=== PATIENT | female | born 1940 | race Caucasian/White ===

== ENCOUNTER 2017-12-04 00:10 | Outpatient (CLI) | payer MEDICARE, SELFPAY ==
[2017-12-04 09:36] LABS: ALT 22 U/L (12-78); AST 15 U/L (15-37); Alkaline Phosphatase 87 U/L (46-116); Bilirubin, Direct 0.12 mg/dL (0.00-0.20); Bilirubin, Total 0.5 mg/dL (0.2-1.0); Glucose 128 mg/dL (70-100); TSH 0.98 uIU/mL (0.358-3.74); Total Protein 7.3 g/dL (6.4-8.2)
[2017-12-04 09:48] LABS: Cholesterol 197 mg/dL (50-200)
[2017-12-06 05:15] LABS: Vitamin D 25 Total 41.5 ng/ml (30-100)
[2017-12-06 05:22] LABS: Hemoglobin A1C 6.3 % (4.5-6.2)
== END 2017-12-04 00:30 ==
PROVIDERS: Nurse Practitioner; PCP Family Medicine; Visit Provider Family Medicine
DX: F20.9 Schizophrenia, unspecified (principal); Z79.899 Other long term (current) drug therapy; R73.03 Prediabetes; M85.88 Other specified disorders of bone density and structure, other site; I10 Essential (primary) hypertension; I49.1 Atrial premature depolarization
CPT/HCPCS: 36415; 80076; 82306; 82947; 82465; 83036; 84443

== ENCOUNTER → 2019-09-22 13:29 | Outpatient (BNVA) | payer MEDICARE, SELFPAY | PROVIDERS: PCP Family Medicine; Referring Provider Family Medicine; Visit Provider Physical Therapy Assistant | DX: Z12.11 Encounter for screening for malignant neoplasm of colon (principal); Z86.010 Personal history of colon polyps; Z80.0 Family history of malignant neoplasm of digestive organs; I10 Essential (primary) hypertension ==

== ENCOUNTER 2019-10-02 12:58 | Day surgery (SDC) | payer MEDICARE, SELFPAY ==
--- NOTE | 2019-10-02 07:05 | COLE_ITS ---
Date of service: 10/02/19 Time of Service: 15:47 Colonoscopy Report Date of procedure: 10/02/19 Pre-op diagnosis general: Hx of polyps and Family history of colon Cancer Post-op diagnosis procedure note: other (Polyps, mild diverticulosis) Procedure: Colonoscopy with polypectomy Surgeon: Lynnette Gonzalez Anesthesia proc note operative: other (General/ ASA 2/ Ryan Clancy CRNA) Estimated blood loss (mL): 3 Pathology: other (Rectal polyp x3, ascending polyp, transverse polyp, descending polyp) Complications: None Disposition: same day Indications: The patient is here for Colonoscopy pre-op. Her last screening was in 2017, which was remarkable for tubular adenoma and sessile serrated adenoma. She reports her mother was diagnosed with colon cancer in her 80s. She has not had any bowel habit changes. -Discussed colonoscopy bowel prep as well as the procedure. Discussed possible complications of the procedure to include bleeding, pain, perforation, missed small lesion/polyp, sore throat, aspiration and adverse reaction to the medications. Questions were answered to patient?s satisfaction. No guarantees were implied or given. Prep: Miralax/Dulcolax Procedure Start Time: 15:47 Procedure End Time: 16:21 Retraction Time: 22 minutes Findings: 6 small sessile polyps Procedure Description: After informed consent was obtained the patient was taken to the procedure room and placed in a left decubitous position. Monitors were applied and a time out was done. The patients name, date of , procedure, allergies to medications and metal in their body was reviewed. The patient was then sedated. Once sedated and comfortable a rectal exam was done. External exam was normal. Internal exam revealed a normal sphincter tone and no palpable masses. The scope was then introduced and retro-flexed. No internal hemorrhoids were identified. The scope was then advanced to the cecum without difficulty. The ileocecal valve and appendiceal orifice were identified. The prep was adequate. The scope was then slowly retracted over 22 minutes back into the rectum. Polyps were removed with cold forceps in the rectum x3, ascending polyp, transverse polyp, and descending polyp. There was mild diverticulosis of the sig moid colon. The scope was removed and the patient was woken up and taken back to Same day surgery in stable condition. The patient tolerated the procedure well and there were no immediate complicati ons. Follow up: The patient should follow up in 3-5 years unless they develop changes in bowel habits or other new gastrointestinal complaints.
--- NOTE | 2019-10-02 07:08 | W.PM.DSUDISC ---
Discharge Plan Disposition Patient Disposition: HOME Condition: Good Discharge Details Reason For Visit: colonoscopy Attending Provider: Lynnette Gonzalez Primary Care Provider: Nikolay Beverly Home Meds and New Rx's Prescriptions: Continued Shingrix (PF) 50 mcg/0.5 mL suspension for reconstitution 50 mcg IM ONCE Qty: 1 RF: 1 ascorbate calcium (vitamin C) 500 mg tablet 500 mg PO DAILY RF: 0 lisinopril-hydrochlorothiazide [Zestoretic] 20-12.5 mg tablet 1 tab PO DAILY Qty: 90 RF: 3 olanzapine 5 mg tablet 5 mg PO QHS Qty: 90 RF: 3 acetaminophen 325 MG tablet 650 mg PO PRN PRNRF: 0 aspirin [Lo-Dose Aspirin] 81 MG tablet,delayed release (DR/EC) 81 mg PO DAILY RF: 0 (DME) lancets [FreeStyle Lancets] 1 EACH misc 1 ea Miscellaneous BID RF: 0 multivitamin [Daily Multi-Vitamin] 1 EACH tablet 1 ea PO DAILY RF: 0 (DME) blood sugar diagnostic [FreeStyle Lite Strips] 1 EACH strip 1 ea Miscellaneous as directed MDD 2 Qty: 50 RF: 11 magnesium oxide 250 MG tablet 250 mg PO DAILY RF: 0 calcium carbonate-vitamin D3 1 EACH tablet 1 ea PO DAILY RF: 0 Discontinued polyethylene glycol 3350 17 gram/dose powder 238 g PO ONCE Qty: 238 RF: 0 bisacodyl [Dulcolax (bisacodyl)] 5 mg tablet,delayed release (DR/EC) 5 mg PO ONCE Qty: 4 RF: 0 Discharge Instructions Instructions: Colorectal Polyps (DC) Additional Instructions: Findings: mild diverticulosis polyps x6 Follow up: 3-5 years if her health allows Please call if you develop: fevers >101.5 Nausea or Vomiting Abdominal pain that is not transient DAY SURGERY UNIT POST ENDOSCOPY INSTRUCTIONS 1. Because there will be medication in your system for the next 24 hours, you may feel a little sleepy. Your coordination will be affected. Therefore: a. Do not drive or operate dangerous equipment for 24 hours. b. Do not drink alcohol beverages for 24 hours (not even beer). c. Plan to go home and rest for the day. 2. Generally there are no restrictions on your activity after a day or so has gone by, but you may feel a bit fatigued for a few days. 3 After you arrive home you may have a light meal and return to a normal diet as you can tolerate it without feeling sick to your stomach. 4. After surgery, you may feel pain or discomfort. This should be only transient, but if it persists please contact your doctor. 5. If there are any questions regarding the findings of your procedure, please feel free to contact your doctor. 6. If you are unable to contact your doctor with a problem, contact the hospital at [phone]. 7. Continue all your regular medications unless directed otherwise. I understand the above instructions and have no questions. Signature of Patient or Responsible Adult Escort Date/Time Name of Responsible Adult Escort Signature of Nurse Date/Time Activity:: Activity as Tolerated Diet:: high fiber Discharge Orders Discharge Orders: Discharge Order (Routine); Ordered 10/02/19 Ordered By: Lynnette Gonzalez
[2019-10-02 13:15] VITALS: BP 137/80; PULSE 96; RESP 18; TEMP 36.1; O2SAT 94
[2019-10-02] MEDS: Lactated Ringers 1,000 ML 80 ML IV (13:40)
--- NOTE | 2019-10-02 15:50 | BOWEL_PTH ---
PATIENT: Sejal Harrington LOC: [facility] U#:[id number] AGE/SX: 78/F ROOM: RE10/02/[address]: Lynnette Gonzalez MD : [id number] BED: DIS: 10/02/2019 SPEC #: [id number] RECD: 10/02/19 17:01 STATUS: GELY RE #: [id number] TED: 10/02/19 15:[address]: Lynnette Gonzalez DEPT: Surgical Specimen RECD BY: Brinda Chilel ENTERED: 10/02/19 17:02 SP TYPE: Bowel OTHR DR: Nikolay Beverly DO Tissues: 1 - BIOPSY BOWEL 2 - BIOPSY BOWEL 3 - BIOPSY BOWEL 4 - BIOPSY BOWEL Procedures: GROSS AND MICRO LEVEL 4 Comments: [id number]
[2019-10-02 17:05] VITALS: BP 128/59; PULSE 67; RESP 18; TEMP 36.3; O2SAT 98
== END 2019-10-02 17:24 | disposition home or self-care (01) ==
LOC: SUR 12:58
PROVIDERS: PCP Family Medicine; Visit Provider Surgery
PROC: 0DJD8ZZ Inspection of Lower Intestinal Tract, Via Natural or Artificial Opening Endoscopic (ICD-10-PCS; CPT 45378; principal; 2019-10-02 15:00)
DX: Z12.11 Encounter for screening for malignant neoplasm of colon (principal); Z86.010 Personal history of colon polyps; Z80.0 Family history of malignant neoplasm of digestive organs; K57.30 Diverticulosis of large intestine without perforation or abscess without bleeding; K62.1 Rectal polyp; D12.2 Benign neoplasm of ascending colon; D12.3 Benign neoplasm of transverse colon; D12.4 Benign neoplasm of descending colon; I10 Essential (primary) hypertension; E11.9 Type 2 diabetes mellitus without complications; K21.9 Gastro-esophageal reflux disease without esophagitis
CPT/HCPCS: 45380; 88305

== ENCOUNTER 2019-11-07 09:25 | Outpatient (REF) | payer MEDICARE, SELFPAY ==
[2019-11-08 08:38] LABS: ALT 19 U/L (14-59); AST 16 U/L (15-37); Albumin 4.3 g/dL (3.4-5.0); Alkaline Phosphatase 80 U/L (46-116); Anion Gap 8.5 mmol/L (3-11); BUN 13 mg/dL (7-18); Bilirubin, Total 0.6 mg/dL (0.2-1.0); CO2 27.5 mmol/L (21.0-32.0); CREATININE 1.01 mg/dL (0.55-1.02); Calcium 9.4 mg/dL (8.5-10.1); Calculated LDL 100 mg/dL (<100); Chloride 102 mmol/L (98-107); Cholesterol 194 mg/dL (<200); Estimated GFR 53.15 (mL/min/1.73m2); Glucose 133 mg/dL (74-106); HDL Cholesterol 54 mg/dL (40-60); Sodium 138 mmol/L (136-145); Triglyceride 201 mg/dL (<150)
== END 2019-11-07 09:45 ==
LOC: LBO 09:25
PROVIDERS: PCP Family Medicine; Referring Provider Family Medicine; Visit Provider Family Medicine
DX: I10 Essential (primary) hypertension (principal); E78.5 Hyperlipidemia, unspecified
CPT/HCPCS: 36415; 80053; 80061

== ENCOUNTER 2020-11-08 02:25 | Outpatient (CLI) | payer MEDICARE, SELFPAY ==
[2020-11-08 12:42] LABS: Anion Gap 8.9 mmol/L (3-11); BUN 15 mg/dL (7-18); CO2 27.1 mmol/L (21.0-32.0); CREATININE 1.2 mg/dL (0.55-1.02); Calcium 9.6 mg/dL (8.5-10.1); Chloride 103 mmol/L (98-107); Estimated GFR 43.45 (mL/min/1.73m2); Glucose 136 mg/dL (74-106); Potassium 4.2 mmol/L (3.5-5.1); Sodium 139 mmol/L (136-145)
== END 2020-11-08 02:26 | disposition home or self-care (01) ==
LOC: LBO 02:25
PROVIDERS: PCP Family Medicine; Visit Provider Family Medicine
DX: R73.01 Impaired fasting glucose (principal)
CPT/HCPCS: 36415; 80048

== ENCOUNTER 2021-10-28 18:46 | Emergency (ER) | payer MEDICARE, SELFPAY ==
[2021-10-28 18:50] VITALS: BP 142/89; PULSE 112; RESP 18; TEMP 37.2; O2SAT 97
--- NOTE | 2021-10-28 19:45 | DI.RAD_ITS ---
Exam(s) XR SHOULDER LT COMPLETE 2+V EXAM: XR SHOULDER LT COMPLETE 2+V CLINICAL HISTORY: fall onto L shoulder, r/o fx. TECHNIQUE: 2D digital imaging was performed of the left shoulder. Four images were obtained. AP, G rashey, Y-view and axillary views were obtained. COMPARISON: No exams were available for comparison FINDINGS: BONES: No acute fracture is present. No bony destructive lesion is seen. JOINTS: No dislocation present. There are [id number] degenerative changes of the acromioclavicu lar joint. SOFT TISSUE: Normal. IMPRESSION: No acute fracture or dislocation. DATA REPOSITORY: RADIATION DOSE DELIVERED:
--- NOTE | 2021-10-28 19:45 | DI.CT_ITS ---
Exam(s) CT HEAD CERVICAL SPINE WO EXAM: CT HEAD CERVICAL SPINE WO CLINICAL HISTORY: s/p fall w/ head injury,r/o intracranial injury/fx. TECHNIQUE: Imaging Protocol: Axial computed tomography images with coronal and sagittal reformatted images were created and reviewed COMPARISON: No exams were available for comparison FINDINGS: CT Head: Ventricles and Extra axial spaces: Normal in size and morphology for the patient's age. Hemorrhage: None. Cerebral parenchyma: No evidence of an acute territorial infarct. There are areas of decreased atten uation in the white matter consistent with small vessel ischemic disease. Midline shift: None. Brainstem/Cerebellum: Normal. Calvarium: Normal. Visualized Paranasal sinuses/Mastoids: Clear. Soft Tissues: There is a small scalp hematoma overlying the posterior left parietal bone. CT Cervical Spine: Bones: No acute fracture or subluxation. Moderately severe degenerative changes are present throughou t the cervical spine. Soft Tissues: There is an enlarged thyroid gland with extension into the superior mediastinum. It is heterogeneous. There is a 0.7 cm thyroid nodule. No follow-up is recommended. Lung Apices: Clear. IMPRESSION: 1. No acute intracranial process. 2. Small scalp hematoma overlying the left parietal bone. 3. No acute fracture or subluxation in the cervical spine. 4. 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 RADIATION DOSE DELIVERED: 1,133.16mGy.cm Total DLP DATA REPOSITORY: All CT scans at this facility are submitted to the National Radiology Data Registry (NRDR) Dose Index Registry (DIR) with the [employer] (ACR). RADIATION OPTIMIZATION: All CT scans at this facility use at least one of these dose optimization te chniques: automated exposure control; mA and/or kV adjustment per patient size (includes targeted exa ms where dose is matched to clinical indication); or iterative reconstruction.
--- NOTE | 2021-10-28 19:45 | DI.CT_ITS ---
Exam(s) CT CHEST/ABD/PEL WO CT THORACIC LUMBAR SPINE REC EXAM: CT CHEST/ABD/PEL WO and CT thoracic and lumbar spine recons CLINICAL HISTORY: fall down stairs, r/o rib/hip fracture TECHNIQUE: Imaging Protocol: Axial computed tomography images with coronal and sagittal reformatted images were created and reviewed COMPARISON: CT CT THORACIC LUMBAR SPINE REC from 10/28/2021 FINDINGS: The examination is limited due to patient motion artifact. CHEST: Tracheobronchial tree: Patent where visualized. Pulmonary parenchyma: No consolidation or dominant measurable mass. No architectural distortion. Mediastinum and Meghana: No dominant adenopathy or fluid collection. The esophagus is unremarkable. Thyroid gland: There is a thyroid goiter with extension into the superior mediastinum. The largest n odule measures 7 mm. Pleura: No effusion or pneumothorax. Heart: The heart is not dilated. No coronary artery calcifications are seen. No pericardial effusion. Aorta: Thoracic aorta non-dilated. Mild atherosclerosis. Lymph nodes: Within normal limits. Bones:Within normal limits for the patient's age. Soft tissues: Unremarkable. CT thoracic spine recons: Degenerative changes are seen in the thoracic spine. No acute fractures or subluxations are seen in the thoracic spine. ABDOMEN: Liver: Normal density. No measurable mass. Gallbladder and Biliary Tract: No radiodense calculus or dilation. Pancreas: Normal density, no abnormal calcifications or inflammatory process. Spleen: Normal. Adrenals: There is a 0.7 cm nodule in the left adrenal gland. No follow-up is recommended. The righ t adrenal gland is unremarkable. Kidneys: Normal size, contour and axis. No radiodense stones or obstructive uropathy. No masses seen. Abdominal Aorta: Abdominal portion non-dilated. Atherosclerosis is present. Bowel: No obstruction or bowel wall thickening. Appendix is unremarkable. There is diverticulosis in the colon, but no evidence of acute diverticulitis. Peritoneal Cavity: No ascites, collection or mesenteric inflammatory response. No free air. Lymph Nodes: Within normal limits. Bones: Within normal limits for the patient's age. Soft Tissues: There is a large hematoma in the subcutaneous fat in the left flank. The hematoma vilma ures at least 9.[address] lumbar spine recons: No acute fractures or subluxations are seen in the lumbar spine. Mild degene rative changes are present. PELVIS: Bladder: Symmetric distention, no gross wall thickening. Reproductive Organs: There is a 6.6 x 6.7 cm cyst lesion in the left adnexa. This is likely ovarian in origin. There is a calcification within the cyst posteriorly. Lymph Nodes: Within normal limits. Bones: Within normal limits for the patient's age. IMPRESSION: 1. No acute thoracic, abdominal or pelvic organ injury. 2. 6.7 cm cystic mass in the left adnexa with an associated calcification. This may represent a sigrid gn lesion such as a cystadenoma. An ultrasound may be considered for further evaluation. 3. No acute fractures or subluxations are seen in the thoracic or lumbar spine. RADIATION DOSE DELIVERED: 1121.5 mGy.cm Total DLP 1121.5 mGy.cm Total DLP DATA REPOSITORY: All CT scans at this facility are submitted to the National Radiology Data Registry (NRDR) Dose Index Registry (DIR) with the [employer] (ACR). RADIATION OPTIMIZATION: All CT scans at this facility use at least one of these dose optimization te chniques: automated exposure control; mA and/or kV adjustment per patient size (includes targeted exa ms where dose is matched to clinical indication); or iterative reconstruction.
--- NOTE | 2021-10-28 19:53 | W.ED.GENAD ---
Discharge Plan Disposition Patient Disposition: HOME Condition: Stable Discharge Details Clinical Impression: Fall, Closed head injury, Contusion of left shoulder, Contusion of back Primary Care Provider: Nikolay Beverly ED Provider: Dyllan Shi Home Meds and New Rx's Prescriptions: No Action ascorbate calcium (vitamin C) 500 mg tablet 500 mg PO DAILY lisinopril-hydrochlorothiazide [Zestoretic] 20-12.5 mg tablet 1 tab PO DAILY Qty: 90 3RF Rx Instructions: to control BP under 140/80 acetaminophen 325 MG tablet 650 mg PO PRN PRN aspirin [Lo-Dose Aspirin] 81 MG tablet,delayed release (DR/EC) 81 mg PO DAILY (DME) lancets [FreeStyle Lancets] 1 EACH misc 1 ea Miscellaneous BID Rx Instructions: TO TEST BLOOD SUGAR 2X/D multivitamin [Daily Multi-Vitamin] 1 EACH tablet 1 ea PO DAILY Rx Instructions: with 1000 iu of vit d. (DME) FreeStyle Lite Strips 1 EACH strip 1 ea Miscellaneous as directed MDD 2 Qty: 50 11RF Rx Instructions: new diabetes, check before breakfast and before supper, two days a week or as directed, E11.9. magnesium oxide 250 MG tablet 250 mg PO DAILY olanzapine 5 mg tablet 5 mg PO QHS Qty: 90 3RF calcium carbonate-vitamin D3 1 EACH tablet 1 ea PO DAILY Discharge Instructions Instructions: Contusion in Adults (ED), R.I.C.E. Treatment (ED) Additional Instructions: Your imaging per radiology is negative for any fracture or break or bleed. Please take Tylenol as needed for pain. Use ice for areas of tenderness. If you notice any worsening of your symptoms, or any new symptoms such as vomiting, diarrhea, fever, chills, shortness of breath, chest pain, numbness, weakness, or fainting , please return immediately to the emergency department for reevaluation. Please follow up with your primary care provider as soon as possible for reassessment and reevaluation. As always, it was a pleasure participating in your medical care today. Referrals: Nikolay Beverly DO [Primary Care Provider] - Discharge Data Discharge Date/Time-TO BE ENTERED AT DEPARTURE: 10/28/21 23:16 Medical Decision Making <Dea Brown DO - Last Filed: 10/30/21 15:41> 80-year-old female with a history of hypertension, bacteremia, schizophrenia, balance problems and frequent falls presents for mechanical fall down 4 steps with head injury, left shoulder and left lower back pain. Denies headache at present and no report of LOC or vomiting. No obvious evidence of head trauma. She has an abrasion to her left lateral shoulder but no obvious deformity. There is an 8 x 6 cm area of induration and tenderness to the left lower back. Does not appear consistent with an abscess but consider seroma considering that he cannot fall 1 week ago and today. Her midline lumbar spine is tender. Chest and abdomen nontender. No orthopedic deformities noted. Will refer for CT head through pelvis imaging and left shoulder x-ray. We will give a dose of Tylenol p.o. Case endorsed to Dr. Shi to follow-up on imaging and final disposition. Dr Reid Documentation Case was signed out to me pending imaging resulting. The Vrad results have returned, and per radiology no evidence of acute process. On reassessment patient looks very well. She is jovial, and shows no signs of distress whatsoever. No evidence of significant trauma on exam. She is able to ambulate well. Patient is stable for discharge. No neurologic abnormalities on exam. Discussed red flags which to return. I have extensively reviewed the treatment plan and discharge instructions with the patient and their family. I have addressed all patient concerns at this time. The patient and family was made aware of what symptoms to monitor for that would warrant a return to the emergency department. Discussed the plan with the patient and family, they demonstrate verbal understanding and agreement with our assessment and plan at this time. The documentation in this chart was dictated using [employer] dictation software. Please excuse any dictation errors. FINDINGS: Thyroid: Normal. No significant nodule or enlargement. Trachea: Normal. Lungs: Unremarkable. No consolidation. No nodule or mass. Pleural spaces: Unremarkable. No pneumothorax. No pleural effusion or thickening. Heart: No cardiomegaly. No pericardial effusion. Coronary arteries: No significant calcification. Esophagus: No esophageal mass or wall thickening. No hiatal hernia. Mediastinal space: Normal. No mass or adenopathy. Lymph nodes: No enlarged mediastinal or axillary lymph nodes. Vasculature: Unremarkable. No aortic aneurysm. Bones/joints: Unremarkable. No acute rib or vertebral fracture. Soft tissues: Unremarkable. Other findings: Visualized upper abdomen is unremarkable. IMPRESSION: No sign of acute trauma. FINDINGS: Lungs: Visualized lung bases are clear. Liver: Normal. No mass or intrahepatic biliary ductal dilatation. Gallbladder and bile ducts: Normal. No calcified stones. No ductal dilation. Pancreas: Normal. No mass or ductal dilation. Spleen: Normal. No splenomegaly. Adrenal glands: Normal. No mass. Kidneys and ureters: Normal. No hydronephrosis, calculus, cyst or mass. Stomach and bowel: Numerous diverticula are present in the descending and sigmoid colon but without signs of acute inflammation. Appendix: No evidence of appendicitis. Intraperitoneal space: Unremarkable. No free air. No significant fluid collection. Vasculature: Unremarkable. No abdominal aortic aneurysm or significant atherosclerosis. Lymph nodes: No enlarged retroperitoneal or mesenteric lymph nodes. Urinary bladder: No mass or wall thickening. Reproductive: Large 7.3 cm thin walled cyst is present in the left adnexa. There is a bienvenido of calcification within the wall. Bones/joints: Unremarkable. No acute fracture. No lytic lesion. Soft tissues: Unremarkable. IMPRESSION: 1. No acute bony or soft tissue trauma. 2. Diverticulosis of the descending and sigmoid colon without signs of acute diverticulitis. 3. Large cystic mass of the left adnexa. No significant soft tissue component. 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 Thank you for allowing us to participate in the care of your patient. Dictated and Authenticated by: Lino Garcia MD 10/28/2021 9:23 PM Eastern Time ([place] & [place] FINDINGS: Bones/joints: Degenerative changes in the spine. No acute fracture or dislocation Soft tissues: Normal. IMPRESSION: No acute findings. Thank you for allowing us to participate in the care of your patient. Dictated and Authenticated by: Fabrice Gillis MD 10/28/2021 9:26 PM Eastern Time ([place] & [place]) FINDINGS: Bones/joints: No acute fracture. Minimal anterolisthesis of L4 on L5. No significant disc protrusion. No severe spinal canal stenosis. Soft tissues: Unremarkable. IMPRESSION: No acute lumbar fracture Thank you for allowing us to participate in the care of your patient. Dictated and Authenticated by: Fabrice Gillis MD 10/28/2021 9:22 PM Eastern Time ([place]) FINDINGS: Bones/joints: No acute fracture. The alignment is grossly maintained. No significant disc protrusion. No severe spinal canal stenosis. Soft tissues: Unremarkable. A small hiatal hernia is detected. IMPRESSION: No acute thoracic fracture FINDINGS: Brain: Mild volume loss. No hemorrhage. Mild white matter disease. No mass effect. Cerebral ventricles: No ventriculomegaly. Paranasal sinuses: Visualized sinuses are unremarkable. No fluid levels. Mastoid air cells: Visualized mastoid air cells are well aerated. Bones/joints: Unremarkable. No acute fracture. Soft tissues: Mild left parietal scalp swelling IMPRESSION: No acute intracranial hemorrhage FINDINGS: Bones/joints: No acute fracture. Loss of cervical lordosis is presumably on a degenerative basis.No significant disc protrusion. No severe spinal canal stenosis. Multilevel foraminal stenosis Lungs: Lung apices are normal. Soft tissues: Multinodular goiter with superior mediastinal extension IMPRESSION: No acute findings. Thank you for allowing us to participate in the care of your patient. Dictated and Authenticated by: Fabrice Gillis MD 10/28/2021 9:19 PM Eastern Time ([place] & [place]) Medical Records Medical records reviewed: Yes I reviewed the patient's medical records. <Dyllan Shi, DO - Last Filed: 10/28/21 22:45> 80-year-old female with a history of hypertension, bacteremia, schizophrenia, balance problems and frequent falls presents for mechanical fall down 4 steps with head injury, left shoulder and left lower back pain. Denies headache at present and no report of LOC or vomiting. No obvious evidence of head trauma. She has an abrasion to her left lateral shoulder but no obvious deformity. There is an 8 x 6 cm area of induration and tenderness to the left lower back. Does not appear consistent with an abscess but consider seroma considering that he cannot fall 1 week ago and today. Her midline lumbar spine is tender. Chest and abdomen nontender. No orthopedic deformities noted. Will refer for CT head through pelvis imaging and left shoulder x-ray. We will give a dose of Tylenol p.o. Yes Case endorsed to Dr. Shi to follow-up on imaging and final disposition. Dr Reid Documentation Case was signed out to me pending imaging resulting. The Vrad results have returned, and per radiology no evidence of acute process. On reassessment patient looks very well. She is jovial, and shows no signs of distress whatsoever. No evidence of significant trauma on exam. She is able to ambulate well. Patient is stable for discharge. No neurologic abnormalities on exam. Discussed red flags which to return. I have extensively reviewed the treatment plan and discharge instructions with the patient and their family. I have addressed all patient concerns at this time. The patient and family was made aware of what symptoms to monitor for that would warrant a return to the emergency department. Discussed the plan with the patient and family, they demonstrate verbal understanding and agreement with our assessment and plan at this time. The documentation in this chart was dictated using [employer] dictation software. Please excuse any dictation errors. FINDINGS: Thyroid: Normal. No significant nodule or enlargement. Trachea: Normal. Lungs: Unremarkable. No consolidation. No nodule or mass. Pleural spaces: Unremarkable. No pneumothorax. No pleural effusion or thickening. Heart: No cardiomegaly. No pericardial effusion. Coronary arteries: No significant calcification. Esophagus: No esophageal mass or wall thickening. No hiatal hernia. Mediastinal space: Normal. No mass or adenopathy. Lymph nodes: No enlarged mediastinal or axillary lymph nodes. Vasculature: Unremarkable. No aortic aneurysm. Bones/joints: Unremarkable. No acute rib or vertebral fracture. Soft tissues: Unremarkable. Other findings: Visualized upper abdomen is unremarkable. IMPRESSION: No sign of acute trauma. FINDINGS: Lungs: Visualized lung bases are clear. Liver: Normal. No mass or intrahepatic biliary ductal dilatation. Gallbladder and bile ducts: Normal. No calcified stones. No ductal dilation. Pancreas: Normal. No mass or ductal dilation. Spleen: Normal. No splenomegaly. Adrenal glands: Normal. No mass. Kidneys and ureters: Normal. No hydronephrosis, calculus, cyst or mass. Stomach and bowel: Numerous diverticula are present in the descending and sigmoid colon but without signs of acute inflammation. Appendix: No evidence of appendicitis. Intraperitoneal space: Unremarkable. No free air. No significant fluid collection. Vasculature: Unremarkable. No abdominal aortic aneurysm or significant atherosclerosis. Lymph nodes: No enlarged retroperitoneal or mesenteric lymph nodes. Urinary bladder: No mass or wall thickening. Reproductive: Large 7.3 cm thin walled cyst is present in the left adnexa. There is a bienvenido of calcification within the wall. Bones/joints: Unremarkable. No acute fracture. No lytic lesion. Soft tissues: Unremarkable. IMPRESSION: 1. No acute bony or soft tissue trauma. 2. Diverticulosis of the descending and sigmoid colon without signs of acute diverticulitis. 3. Large cystic mass of the left adnexa. No significant soft tissue component. 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 Thank you for allowing us to participate in the care of your patient. Dictated and Authenticated by: Lino Garcia MD 10/28/2021 9:23 PM Eastern Time ([place] FINDINGS: Bones/joints: Degenerative changes in the spine. No acute fracture or dislocation Soft tissues: Normal. IMPRESSION: No acute findings. Thank you for allowing us to participate in the care of your patient. Dictated and Authenticated by: Fabrice Gillis MD 10/28/2021 9:26 PM Eastern Time ([place] & [place]) FINDINGS: Bones/joints: No acute fracture. Minimal anterolisthesis of L4 on L5. No significant disc protrusion. No severe spinal canal stenosis. Soft tissues: Unremarkable. IMPRESSION: No acute lumbar fracture Thank you for allowing us to participate in the care of your patient. Dictated and Authenticated by: Fabrice Gillis MD 10/28/2021 9:22 PM Eastern Time ([place] & [place]) FINDINGS: Bones/joints: No acute fracture. The alignment is grossly maintained. No significant disc protrusion. No severe spinal canal stenosis. Soft tissues: Unremarkable. A small hiatal hernia is detected. IMPRESSION: No acute thoracic fracture FINDINGS: Brain: Mild volume loss. No hemorrhage. Mild white matter disease. No mass effect. Cerebral ventricles: No ventriculomegaly. Paranasal sinuses: Visualized sinuses are unremarkable. No fluid levels. Mastoid air cells: Visualized mastoid air cells are well aerated. Bones/joints: Unremarkable. No acute fracture. Soft tissues: Mild left parietal scalp swelling IMPRESSION: No acute intracranial hemorrhage FINDINGS: Bones/joints: No acute fracture. Loss of cervical lordosis is presumably on a degenerative basis.No significant disc protrusion. No severe spinal canal stenosis. Multilevel foraminal stenosis Lungs: Lung apices are normal. Soft tissues: Multinodular goiter with superior mediastinal extension IMPRESSION: No acute findings. Thank you for allowing us to participate in the care of your patient. Dictated and Authenticated by: Fabrice Gillis MD 10/28/2021 9:19 PM Eastern Time ([place] & [place]) HPI <Dea Brown DO - Last Filed: 10/30/21 15:41> General Mode of arrival: EMS. Date/Time Provider Initiated Documentation: 10/28/21 19:08. Limitations to Documentation: no limitations. Information obtained by: patient. HPI Narrative: Patient is a 80-year-old female with a history of hypertension, hyperlipidemia, falls, schizophrenia who presents for head injury, left shoulder pain and left lower back pain after mechanical fall down 4 steps prior to arrival. Patient states she was carrying a trash bag down a few steps when she slipped and fell backwards striking her head on the cement floor. She states she also hit her left shoulder and left lower back on the way down. She admits to headache initially but currently denies any headache. She is complaining mainly of mild left shoulder pain but mainly has pain in her left lower back. She also admits to a fall in the shower over a week ago with possible injury to her left lower back. Related Data Home Medications Medication Instructions Recorded Confirmed acetaminophen 325 mg tablet 650 mg PO PRN PRN 06/23/12 10/28/21 aspirin 81 mg tablet,delayed 81 mg PO DAILY 06/23/12 10/28/21 release (Lo-Dose Aspirin) lancets 28 gauge (FreeStyle 06/23/12 11/07/19 Lancets) multivitamin (Daily Multi-Vitamin 1 ea PO DAILY 05/20/15 10/28/21 tablet) blood sugar diagnostic (FreeStyle #50 strips 12/14/16 11/07/19 Lite Strips) calcium carbonate 600 mg-vitamin 1 ea PO DAILY 01/11/17 10/28/21 D3 20 mcg (800 unit) tablet magnesium oxide 250 mg PO DAILY 08/17/17 10/28/21 ascorbate calcium (vitamin C) 500 500 mg PO DAILY 09/22/19 10/28/21 mg tablet olanzapine 5 mg tablet 5 mg PO QHS #90 tabs 12/23/20 10/28/21 lisinopril 20 1 tab PO DAILY #90 tab-caps 02/11/21 10/28/21 mg-hydrochlorothiazide 12.5 mg tablet (Zestoretic) Previous Rx's Medication Instructions Recorded blood sugar diagnostic (FreeStyle #50 strips 12/14/16 Lite Strips) olanzapine 5 mg tablet 5 mg PO QHS #90 tabs 12/23/20 lisinopril 20 1 tab PO DAILY #90 tab-caps 02/11/21 mg-hydrochlorothiazide 12.5 mg tablet (Zestoretic) Allergies Allergy/AdvReac Type Severity Reaction Status Date / Time No Known Allergies Allergy Verified 10/28/21 19:19 General Stated Complaint: Trauma STUART: 3 Review of Systems <Dea Brown DO - Last Filed: 10/30/21 15:41> All systems reviewed & are unremarkable except as noted in HPI and below Constitutional Constitutional: Denies chills, Denies excessive sweating, Denies fatigue, Denies fever(s), Reports headache(s), Denies weakness and Denies weight loss Eyes Eyes: Reports system reviewed and no additional complaints, except as documented and Denies blurry vision ENT Ears, Nose, Mouth, and Throat: Denies vertigo, Denies dizziness, Denies otalgia, Reports headache(s), Denies nasal congestion, Denies sore throat and Denies throat swelling Cardiovascular Cardiovascular: Denies chest pain, Denies syncope, Denies rapid heart rate and Denies dyspnea Respiratory Respiratory: Denies chest congestion, Denies cough, Denies pain on inspiration and Denies dyspnea Gastrointestinal Gastrointestinal: Denies abdominal pain, Denies diarrhea and Denies vomiting Genitourinary Genitourinary: Denies hematuria, Denies dysuria and Denies flank pain Musculoskeletal Musculoskeletal: Denies back pain and Denies joint swelling Comments: Left shoulder, left lower back pain Integumentary/Breasts Skin/Breast: Denies lesions and Denies rash Neurologic Neurologic: Denies behavioral changes, Denies confusion, Denies vertigo, Denies dizziness, Denies syncope, Reports headache(s), Denies localized weakness and Denies weakness Psychiatric Psychiatric: Denies behavioral changes, Denies confusion and Denies depression Endocrine Endocrine: Denies excessive sweating and Denies fatigue Hematologic/Lymphatic Hematologic/Lymphatic: Denies easy bruising and Denies lymphadenopathy Allergic/Immunologic Allergic/Immunologic: Denies throat swelling PFSH <Dea Brown DO - Last Filed: 10/30/21 15:41> All Active Problems (Updated 10/28/21 @ 20:23 by Dea Brown DO) Fall (Acute) Closed head injury (Acute) Contusion of left shoulder (Acute) Contusion of back (Acute) Chronic kidney disease (Chronic) Nocturnal leg cramps (Acute) Diabetes mellitus (Chronic) Tubular adenoma of colon (Acute) Sessile colonic polyp (Acute) Counseling on health promotion and disease prevention (Acute) Hypercalcemia (Acute 06/22/10) Impaired fasting glucose (Acute 08/21/13) Overweight (Acute 02/27/11) Sessile colonic polyp (Acute 03/09/16) Tubular adenoma (Chronic 03/09/16) two adenomas, one serrated; rec repeat in 3 yrs.; Dr Gonzalez Skin lesion (Chronic 05/20/15) skin lesion R shoulder (?vaccinatioin site?) Sessile colonic polyp (Chronic 03/09/16) Osteoarthrosis involving more than one site but not generalized (Chronic 02/27/11) knees, fingers, toes Osteoarthritis (Chronic 02/27/11) knees, fingers, toes New onset type 2 diabetes mellitus (Chronic 06/26/16) ? 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 Dysmetabolic syndrome X (Chronic 02/27/11) IMPAIRED FBS 2 ELEVATED FBS OF 11/2008 MIN ELEVATION DIET CONTROLLED Depressive disorder (Chronic 02/27/11) SEES [employer]; olanzapine since 1997 Dysmetabolic syndrome X (Chronic 02/27/11) IMPAIRED FBS 2 ELEVATED FBS OF 11/2008 MIN ELEVATION DIET CONTROLLED Benign essential hypertension (Chronic 12/23/04) GOAL 130/85 Advance directive discussed with patient (Chronic 10/04/12) HAS DPOA 05/21/12 IN [facility]; [facility]; DNR/DNI ALSO DISCUSSED/DESIRED Abnormal blood sugar (Chronic) IMPAIRED FBS 2 ELEVATED FBS OF 11/2008 MIN ELEVATION DIET CONTROLLED Medical History (Updated 10/28/21 @ 20:23 by Dea Brown DO) Balance problems Basal cell carcinoma (05/31/15) nodular type R shoulder Cataract of both eyes (01/04/17) Frequent falls HTN (hypertension) Hyperlipidemia (02/27/11) Schizophrenia (05/25/16) Followed by [facility] Surgical History Colonoscopy - IV Sedation (03/09/16) Extraction of cataract (01/18/17) Dr. Lowry Left eye 01/18/17, Right eye 02/01/17 [facility] Tonsillectomy and adenoidectomy (~1950) Trigger Finger release Wide local excision of basal cell carcinoma of the right posterior upper ex (06/17/15) LynnetteJessicaAna Gonzalez Family History Mother , heart at age 94. Heart disease Father , ?? Substance abuse Sister No problems noted. Social History (Updated 11/12/20 @ 08:45 by Evy Lemus RN, RN) Smoking/Tobacco Use Status: Never Smoking risk assessment performed?: Yes Alcohol Intake: never Drug use: Never Substance use type: does not use Household members: children Housing: house Number of Children: 2 Communication Needs: None current occupation: retired Pets and animals: No Sexually active: No Do you think of yourself as: straight/heterosexual Current gender identity: female What is your relationship status?: How often do you talk on the phone with friends or family?: three or more times per week How often do you attend jewish or buddhism services?: decline to answer Do you belong to any clubs or organized social groups?: no Panel score (0-1 are the most socially isolated patients): 1 What type of physical activity do you participate in: walking Duration: 30-45 minutes/day Frequency: 3-4 times per week Simona/Alevism: None Special simona needs: No Seatbelt use: always Helmet use: Yes Helmet use: never Drive intox or ride w/intox home delivery driver: No Working smoke detector in home: Yes Fire extinguisher in home: Yes Carbon monox detector in home: Yes Do you feel safe at home: Yes Additional Social history: Pt lives with adult daughter Exam <Dea Brown DO - Last Filed: 10/30/21 15:41> Const General: cooperative and healthy appearing Orientation: alert, awake and oriented x3 HENKS Head: normal to inspection, no palpable skull fracture, normocephalic and atraumatic Ears: hearing grossly normal bilaterally, external ears normal, TM normal on the right and TM abnormal obstructed by cerumen on the left General nose exam: external nose normal Face and sinus: normal facial exam Mouth: oral mucosae normal Teeth and gingiva: poor dentition Throat: posterior oropharynx normal Eyes General: appearance normal, both eyes and all related structures Eyelids: eyelids normal Pupils: PERRL EOM: EOM intact bilaterally Neck Neck: normal visual inspection Lymphatic: no lymphadenopathy noted Chest Chest: normal inspection of the chest, normal palpation of entire chest wall and no tenderness Resp Effort & Inspection: normal respiratory effort and able to speak in complete sentences Auscultation: clear to auscultation bilaterally Cardio Rate: regular rate Rhythm: regular rhythm GI Inspection: normal to inspection Palpation: soft, not firm, no guarding, no hepatosplenomegaly, no masses and nontender Auscultation: normal bowel sounds Back/Spine/Pelvis Cervical Spine: No cervical spinal tenderness Thoracic/Lumbar Spine: thoracic and lumbar spine normal to inspection, No thoracic spinal tenderness and lumbar spinal tenderness Back/spine/pelvis image: 1. Approximate 8 x 6 cm area of tender induration with abrasion on superior aspect. There is no crepitus, erythema or significant ecchymosis. Skin General skin exam: no rashes or lesions noted Neuro General: patient alert, patient awake, patient oriented x3, moves all extremities and no meningeal signs Cranial Nerves: CN's II-XI intact bilaterally Cognition: normal cognition Speech: speech normal Gait: normal gait Motor: muscle tone normal throughout Sensory Exam: no sensory deficits noted Extrem General: normal to inspection, full ROM and capillary refill normal Shoulder/upper arm images: 1. Superficial abrasion. Tenderness to palpation but no significant pain with range of motion. No deformity. Other: Pain in left lower back and left lateral hip with range of motion of left lower extremity. No pain with range of motion in the right upper or lower extremity. Left elbow and wrist normal inspection without pain. Remainder of left lower extremity without pain with range of motion. Psych Appearance: grossly normal Mental Status: mental status grossly normal Speech and Movement: speech and movement normal Affect: normal affect Thought Process: normal Course <Dea Brown, DO - Last Filed: 10/30/21 15:41> Vital Signs Vital signs: Vital Signs Temperature 99.0 F 10/28/21 18:50 Pulse 112 H 10/28/21 18:50 Respiratory Rate 18 10/28/21 18:50 Blood Pressure 142/89 H 10/28/21 18:50 Pulse Oximetry 97 10/28/21 18:50 Temperature 99.0 F 10/28/21 18:50 Temperature Source Skin 10/28/21 18:50 Pulse 112 H 10/28/21 18:50 Respiratory Rate 18 10/28/21 18:50 Respiratory Effort Non-Labored 10/28/21 19:19 Blood Pressure 142/89 H 10/28/21 18:50 Pulse Oximetry 97 10/28/21 18:50 Pain Level 0 10/28/21 18:50 Sign Out <Dea Brown DO - Last Filed: 10/30/21 15:41> Sign Out Data: Sign Out Comment: Fall down 4 steps. Follow up on imaging and final disposition. Last updated by Dea Brown DO at 10/28/21 20:14
[2021-10-28] MEDS: Acetaminophen 500 MG TAB 1000 MG PO (20:46)
--- NOTE | 2021-10-28 21:19 | DI.VRAD_ITS ---
PROCEDURE INFORMATION: Exam: CT Head Without Contrast Exam date and time: 10/28/2021 8:55 PM Age: 80 years old Clinical indication: Other: S/P fall w/ head injury, R/O intracranial injury/fx TECHNIQUE: Imaging protocol: Computed tomography of the head without contrast. Radiation optimization: All CT scans at this facility use at least one of these dose optimization techniques: automated exposure control; mA and/or kV adjustment per patient size (includes targeted exams where dose is matched to clinical indication); or iterative reconstruction. COMPARISON: No relevant prior studies available. FINDINGS: Brain: Mild volume loss. No hemorrhage. Mild white matter disease. No mass effect. Cerebral ventricles: No ventriculomegaly. Paranasal sinuses: Visualized sinuses are unremarkable. No fluid levels. Mastoid air cells: Visualized mastoid air cells are well aerated. Bones/joints: Unremarkable. No acute fracture. Soft tissues: Mild left parietal scalp swelling IMPRESSION: No acute intracranial hemorrhage PROCEDURE INFORMATION: Exam: CT Cervical Spine Without Contrast Exam date and time: 10/28/2021 8:55 PM Age: 80 years old Clinical indication: Other: S/P fall w/ head injury, R/O intracranial injury/fx TECHNIQUE: Imaging protocol: Computed tomography of the cervical spine without contrast. Radiation optimization: All CT scans at this facility use at least one of these dose optimization techniques: automated exposure control; mA and/or kV adjustment per patient size (includes targeted exams where dose is matched to clinical indication); or iterative reconstruction. COMPARISON: No relevant prior studies available. FINDINGS: Bones/joints: No acute fracture. Loss of cervical lordosis is presumably on a degenerative basis.No significant disc protrusion. No severe spinal canal stenosis. Multilevel foraminal stenosis Lungs: Lung apices are normal. Soft tissues: Multinodular goiter with superior mediastinal extension IMPRESSION: No acute findings. Dictated and Authenticated by: Fabrice Gillis MD. Ordering:IVONNE Malin MD
--- NOTE | 2021-10-28 21:23 | DI.VRAD_ITS ---
PROCEDURE INFORMATION: Exam: CT Thoracic Spine Without Contrast Exam date and time: 10/28/2021 9:01 PM Age: 80 years old Clinical indication: Other: S/P fall down stairs, R/O FX lumbar spine TECHNIQUE: Imaging protocol: Computed tomography of the thoracic spine without contrast. Radiation optimization: All CT scans at this facility use at least one of these dose optimization techniques: automated exposure control; mA and/or kV adjustment per patient size (includes targeted exams where dose is matched to clinical indication); or iterative reconstruction. COMPARISON: CT HEAD CERVICAL SPINE WO 10/28/2021 8:55 PM FINDINGS: Bones/joints: No acute fracture. The alignment is grossly maintained. No significant disc protrusion. No severe spinal canal stenosis. Soft tissues: Unremarkable. A small hiatal hernia is detected. IMPRESSION: No acute thoracic fracture PROCEDURE INFORMATION: Exam: CT Lumbar Spine Without Contrast Exam date and time: 10/28/2021 9:01 PM Age: 80 years old Clinical indication: Other: S/P fall down stairs, R/O FX lumbar spine TECHNIQUE: Imaging protocol: Computed tomography of the lumbar spine without contrast. Radiation optimization: All CT scans at this facility use at least one of these dose optimization techniques: automated exposure control; mA and/or kV adjustment per patient size (includes targeted exams where dose is matched to clinical indication); or iterative reconstruction. COMPARISON: No relevant prior studies available. FINDINGS: Bones/joints: No acute fracture. Minimal anterolisthesis of L4 on L5. No significant disc protrusion. No severe spinal canal stenosis. Soft tissues: Unremarkable. IMPRESSION: No acute lumbar fracture Dictated and Authenticated by: Fabrice Gillis MD. Ordering:IVONNE Malin MD
--- NOTE | 2021-10-28 21:23 | DI.VRAD_ITS ---
PROCEDURE INFORMATION: Exam: CT Chest Without Contrast; Diagnostic Exam date and time: 10/28/2021 9:01 PM Age: 80 years old Clinical indication: Other: Fall down stairs, R/O rib/hip fracture TECHNIQUE: Imaging protocol: Diagnostic computed tomography of the chest without contrast. Radiation optimization: All CT scans at this facility use at least one of these dose optimization techniques: automated exposure control; mA and/or kV adjustment per patient size (includes targeted exams where dose is matched to clinical indication); or iterative reconstruction. COMPARISON: CT HEAD CERVICAL SPINE WO 07/31/2021 20:55 FINDINGS: Thyroid: Normal. No significant nodule or enlargement. Trachea: Normal. Lungs: Unremarkable. No consolidation. No nodule or mass. Pleural spaces: Unremarkable. No pneumothorax. No pleural effusion or thickening. Heart: No cardiomegaly. No pericardial effusion. Coronary arteries: No significant calcification. Esophagus: No esophageal mass or wall thickening. No hiatal hernia. Mediastinal space: Normal. No mass or adenopathy. Lymph nodes: No enlarged mediastinal or axillary lymph nodes. Vasculature: Unremarkable. No aortic aneurysm. Bones/joints: Unremarkable. No acute rib or vertebral fracture. Soft tissues: Unremarkable. Other findings: Visualized upper abdomen is unremarkable. IMPRESSION: No sign of acute trauma. PROCEDURE INFORMATION: Exam: CT Abdomen And Pelvis Without Contrast Exam date and time: 10/28/2021 9:01 PM Age: 80 years old Clinical indication: Other: Fall down stairs, R/O rib/hip fracture TECHNIQUE: Imaging protocol: Computed tomography of the abdomen and pelvis without contrast. Radiation optimization: All CT scans at this facility use at least one of these dose optimization techniques: automated exposure control; mA and/or kV adjustment per patient size (includes targeted exams where dose is matched to clinical indication); or iterative reconstruction. COMPARISON: No relevant prior studies available. FINDINGS: Lungs: Visualized lung bases are clear. Liver: Normal. No mass or intrahepatic biliary ductal dilatation. Gallbladder and bile ducts: Normal. No calcified stones. No ductal dilation. Pancreas: Normal. No mass or ductal dilation. Spleen: Normal. No splenomegaly. Adrenal glands: Normal. No mass. Kidneys and ureters: Normal. No hydronephrosis, calculus, cyst or mass. Stomach and bowel: Numerous diverticula are present in the descending and sigmoid colon but without signs of acute inflammation. Appendix: No evidence of appendicitis. Intraperitoneal space: Unremarkable. No free air. No significant fluid collection. Vasculature: Unremarkable. No abdominal aortic aneurysm or significant atherosclerosis. Lymph nodes: No enlarged retroperitoneal or mesenteric lymph nodes. Urinary bladder: No mass or wall thickening. Reproductive: Large 7.3 cm thin walled cyst is present in the left adnexa. There is a bienvenido of calcification within the wall. Bones/joints: Unremarkable. No acute fracture. No lytic lesion. Soft tissues: Unremarkable. IMPRESSION: 1. No acute bony or soft tissue trauma. 2. Diverticulosis of the descending and sigmoid colon without signs of acute diverticulitis. 3. Large cystic mass of the left adnexa. No significant soft tissue component. 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 Dictated and Authenticated by: Lino Garcia MD. Ordering:IVONNE Malin MD
--- NOTE | 2021-10-28 21:26 | DI.VRAD_ITS ---
PROCEDURE INFORMATION: Exam: XR Left Shoulder Exam date and time: 10/28/2021 9:08 PM Age: 80 years old Clinical indication: Other: Fall onto L shoulder, R/O FX TECHNIQUE: Imaging protocol: Radiologic exam of the Left shoulder. Views: 2 or more views. COMPARISON: CT CHEST/ABD/PEL WO 10/28/2021 9:01 PM FINDINGS: Bones/joints: Degenerative changes in the spine. No acute fracture or dislocation Soft tissues: Normal. IMPRESSION: No acute findings. Dictated and Authenticated by: Fabrice Gillis MD. Ordering:IVONNE Malin MD
[2021-10-28 22:41] VITALS: BP 107/63; PULSE 90; RESP 16; TEMP 36.6; O2SAT 95
== END 2021-10-28 23:16 | disposition home or self-care (01) ==
PROVIDERS: Emergency Provider Student in an Organized Health Care Education/Training Program; PCP Family Medicine
DX: S40.012A Contusion of left shoulder, initial encounter (principal); S30.0XXA Contusion of lower back and pelvis, initial encounter; W10.9XXA Fall (on) (from) unspecified stairs and steps, initial encounter; I10 Essential (primary) hypertension; S09.90XA Unspecified injury of head, initial encounter
CPT/HCPCS: 71250; 99284; 70450; 72125; 73030; 74176

== ENCOUNTER 2022-01-16 01:44 | Outpatient (CLI) | payer MEDICARE, SELFPAY ==
--- OUTSIDE RECORDS SUMMARY | 2022-01-16 01:46 | XMS_ITS | Encounter Summary ---
:1940 Author Organization [facility] Address [address] [place] [address] Care Team Providers Name Role Phone Nikolay Beverly DO Primary Care Provider Encounter Details Date Type Department Care Team Description 10/03/2019 Lab Requisition [facility] Sita Gonzalez for other Pathology & MD Taran general examination Laboratory Medicine [address], [place] [address] [facility] [address] [place], [place] [id number] Social History Tobacco Use Types Packs/Day Years Used Date Smoking Tobacco: Never Assessed Sex Assigned at Date Recorded Not on file documented as of this encounter Plan of Treatment Not on filedocumented as of this encounter Procedures Procedure Name Priority Date/Time Associated Diagnosis Comme nts SURGICAL PATHOLOGY Today 10/02/2019 15:50 Encounter for othe r Results for this EDT general examination procedur e are in the results section. documented in this encounter Results SURGICAL PATHOLOGY (10/02/2019 15:50 EDT) Component Value Ref Test Analysis Performed At [facility] Range Method Time Signature Final A. RECTUM, POLYP X3, BIOPSY: 10/04/2019 [facility] Diagnosis - Hyperplastic polyps. 12:00 EDT CENTER LABORATORY B. COLON, ASCENDING, POLYP, BIOPSY: SERVICES - Tubular adenoma. C. COLON, TRANSVERSE, POLYP, BIOPSY: - Tubular adenoma. - Consistent with sessile serrated adenoma. D. COLON, DESCENDING, POLYP, BIOPSY: - Tubular adenoma. Attestation By the signature 10/04/2019 [facility] Electronically below, the 12:00 EDT CENTER signed by Jose Guadalupe attending LABORATORY Cora Chavarria MD physician SERVICES on 10/04/19 20 at certifies that 1200 they have 1) personally conducted a gross and/or microscopic examination of the described specimen(s), and/or personally interpreted the results of laboratory testing of the described specimen(s), and 2) personally rendered or confirmed the above diagnosis. Clinical Screening, 10/04/2019 [facility] History history of 12:00 EDT CENTER polyps, family LABORATORY history of colon SERVICES cancer Gross A. 10/04/2019 [facility] Description Received in formalin yaron d with proper patient identification (initials C, C) and rectal polyps x3 are two urbina brown tissues, 0.2 x 0.2 x 0.2 cm and 0.3 x 0.2 x 0.1 cm. Entirely submitted in A1. 12:00 T CENTER NOTE TO PATHOLOGIST: For par t A, the requisition lists the specimen as 3, however only 2 pieces of tissue are identified in the specimen container, per the cutting room. LABORATORY SERVICES B. Received in formalin yaron d with proper patient identification (initials C, C) and ascending colon polyp is a urbina irregular tissue, 0.2 x 0.1 x 0.1 cm. Entirely submitted in B1. C. Received in formalin yaron d with proper patient identification (initials C, C) and transverse colon polyp are two urbina irregular tissues, 0.1 cm in greatest dimension and 0.2 x 0.2 x 0.1 cm. Entirely submitted in C1. D. Received in formalin yaron d with proper patient identification (initials C, C) and descending colon polyp are two urbina irregular tissues, 0.2 x 0.2 x 0.1 cm and 0.2 x 0.1 x 0.1 cm. Entirely submitted in D1. Jessica Machado 10/03/2019 13:28 Performing Lab [facility] 10/04/2019 [facility] LAB 12:00 [facility] LABORATORY SERVICES Scanned Images 10/04/2019 [facility] 12:00 [facility] SERVICES Specimen Anatomical Collection Method Collection Time Receive d Time (Source) Location / / Volume Laterality Tissue SPECIMEN FROM 10/02/2019 15:50 10/03/2019 6:56 RECTUM / Unknown EDT EDT Tissue specimen 10/02/2019 15:50 10/03/19 6:56 (specimen) EDT EDT (Colon, Polyp) Tissue specimen 10/02/2019 15:50 10/03/19 20 6:56 (specimen) EDT EDT (Colon, Polyp) Tissue specimen 10/02/2019 15:50 10/03/19 20 6:56 (specimen) EDT EDT (Colon, Polyp) Taran Gonzalez MD PATHOLOGY ORDERABLES Performing Organization Address City/State/ZIP Code Phon e Number [facility] [address] [place] [address] SERVICES documented in this encounter Visit Diagnoses Diagnosis Encounter for other general examination documented in this encounter Care Teams Scientific Illustrator Relationship Specialty Start Date End Date Nikolay Beverly DO PCP - General 09/29/[address] [place] [phone] documented as of this encounter
--- OUTSIDE RECORDS SUMMARY | 2022-01-16 01:46 | XMS_ITS | Encounter Summary ---
:1940 Author Organization [facility] Address [address] [place] [address] Care Team Providers Name Role Phone Evgeny King MD Primary Care Provider Encounter Details Date Type Department Care Team Description 05/31/2015 Results Only [facility]- Chente [place] [phone] [facility] [place], [place] [id number] (Wo rk) Social History Tobacco Use Types Packs/Day Years Used Date Smoking Tobacco: Never Assessed Sex Assigned at Date Recorded Not on file documented as of this encounter Plan of Treatment Not on filedocumented as of this encounter Procedures Procedure Name Priority Date/Time Associated Diagnosis Comme [facility] SURGICAL PATHOLOGY Routine 05/31/2015 10:30 Resul ts for this EDT procedure are i n the results section. documented in this encounter Results SURGICAL PATHOLOGY (05/31/2015 10:30 EDT) Component Value Ref Test Analysis Performed At [facility] Method Time Signature Pathology SURGICAL PATHOLOGY REPORT [facility] Report: Reports generated via electronic interface contain [facility] data; CENTER however they are lacking the format of the original report. LABORATORY Caution should be taken when reading/interpreting unformat mago reports. SERVICES Name: ? NANDA COLLIER ? Accession #: ? [id number] ? : ? 1940 (Age: [age]) ??F ? Collect Date: ? 05/31/2015 ? Location: ? [facility] ? Receive Date: ? 06/01/2015 ? Provider: CHENTE SANDOVAL Copy to: BLAYNE MARTINEZ MD ? Final Pathologic Diagnosis: SKIN OF SHOULDER, RIGHT, PUNCH BIOPSY: - Basal cell carcinoma, nodular type. - Lesion extends to peripheral edge and base of biopsy spec imen. Document reviewed and electronically signed by: BECKY REED MD Report ??Date: 06/04/2015 12:57 By the signature above, the attending physician certifies th at he/she has personally conducted a gross and/or microscopic examin ation of the described specimens and rendered or confirmed the above diagnosis. Specimen(s) Received: Skin lesion right shoulder Clinical History: Skin lesion right shoulder Gross Description: ? Received in formalin labelled with proper patient identification (initials C, C) and skin lesion of ri t shoulder is a punch-shaped biopsy of urbina-white skin (0.2 cm in diameter and 0.2 cm in thickness). Also received is a urbina-brown soft tissue fragment (0.4 x 0.2 x 0.1 cm). Both tissues are submitted intact in 1. Dr. Toth 06/03/2015 2:12 PM End of Report Specimen Anatomical Collection Method Collection Time Receive d Time (Source) Location / / Volume Laterality 05/31/2015 10:30 06/01/2015 EDT 10:30 EDT Chente SANDOVAL PATHOLOGY ORDERABLES Performing Organization Address City/State/ZIP Code Phon e Number [facility] [address] [place] [address] SERVICES documented in this encounter Visit Diagnoses Not on filedocumented in this encounter Care Teams Hardboard Supervisor Relationship Specialty Start Date End Date Evgeny King MD PCP - General 04/16/09 06/05/[address] [place] [phone] documented as of this encounter
--- OUTSIDE RECORDS SUMMARY | 2022-01-16 01:46 | XMS_ITS | Encounter Summary ---
:1940 Author Organization [facility] Address [address] [place] [address] Care Team Providers Name Role Phone Nikolay Michele MD Primary Care Provider Unavailable Encounter Details Date Type Department Care Team Description 06/17/2015 Hospital Encounter [facility]- Hillary Callejas, Provider, [facility] [address] [facility] [phone] [place] [address] (Work) [phone] Social History Tobacco Use Types Packs/Day Years Used Date Smoking Tobacco: Never Assessed Sex Assigned at Date Recorded Not on file documented as of this encounter Discharge Disposition Disposition Code Departure Means Destination Home or Self [facility] documented in this encounter Plan of Treatment Not on filedocumented as of this encounter Visit Diagnoses Not on filedocumented in this encounter Care Teams C Python Developer Relationship Specialty Start Date End Date Nikolay Michele MD PCP - General 06/06/15 documented as of this encounter
--- OUTSIDE RECORDS SUMMARY | 2022-01-16 01:46 | XMS_ITS | Encounter Summary ---
:1940 Author Organization [facility] Address [address] [place] [address] Care Team Providers Name Role Phone Evgeny King MD Primary Care Provider Encounter Details Date Type Department Care Team Description 04/16/2009 Results Only [facility] Ruth Bui, TONO Laboratory Services - [address] [place], [place] [address] [facility] [id number] [place] [address] [phone] Social History Tobacco Use Types Packs/Day Years Used Date Smoking Tobacco: Never Assessed Sex Assigned at Date Recorded Not on file documented as of this encounter Plan of Treatment Not on filedocumented as of this encounter Procedures Procedure Name Priority Date/Time Associated Comments Diagnosis HPV DETECTION, HIGH Routine 04/16/2009 13:55 Resu lts for this RISK TYPES EST procedure are i n the results section. CYTOPATHOLOGY Routine 04/16/2009 0:00 Results for this EST procedure are i n the results section. documented in this encounter Results HUMAN PAPILLOMA VIRUS DNA TEST (04/16/2009 13:55 EST) [facility] Method Time Signature Specimen Cervix, CANTOR Description ThinPrep [facility] vial Result Negative for CANTOR HPV types [facility] 16, 18, 31, 33, 35, 39, 45, 51, 52, 56, 58, 59, and 68. Report Status Final SAKSHI 04/23/2009 [facility] Specimen Anatomical Collection Method Collection Time Receive d Time (Source) Location / / Volume Laterality 04/16/2009 13:55 04/18/2009 EST 13:55 EST Agnes Bui NP MICROBIOLOGY - GENERAL ORDER ANTHONY Performing Organization Address City/State/ZIP Code Phon e Number [facility] [address] [place] [address] SERVICES [facility] [address] [place] [address] CYTOPATHOLOGY (04/16/2009 0:00 EST) Component Value Ref Test Analysis Performed At [facility] Range Method Time Signature Pathology CYTOPATHOLOGY REPORT ? [facility] Report: ? [facility] Reports generated via LensAR interface contain original data; ? however they are lacking the format of the original report. ? Caution should be taken when reading/interpreting unformatted reports. ? Name: ? NANDA COLLIER ? Accession #: ? [id number] ? : ? 1940 (Age: 68) ??F ?Collect Date: ? 04/16/2009 ? Location: ? [facility] ? Receive Date: ? 04/16/2009 ? Provider: ?AGNES L R OBINSON SOLVENT MIXER ? Copy to: ? Specimen/Source: ? Pap Test, Endocervix, ThinPrep Imaging System with ? manual evaluation ? Last Menstrual Period: ? > 20 yrs ? Other: ? HPVDX - HPV testing requeste d regardless of diagnosis on current ThinPrep Pap ?? test. ? SPECIMEN ADEQUACY ? Satisfactory for Eval uation ? - assessment of transformati on zone component not applicable ( e.g. atrophy, ? vaginal sample, hysterectomy ) ? GENERAL CATEGORIZATION ? Negative for Intraepi thelial Lesion or Malignancy ? Document reviewed and electr onically signed by: ? Angelica Verville,CT(ASCP) ? Report Date: ??04/18/ 2009 07:43 ? End of Report ? Specimen (Source) Anatomical Location Collection Method / Collectio n Time Received Time / Laterality Volume 04/16/2009 04/16/2009 Agnes Bui SOLVENT MIXER PATHOLOGY ORDERABLES Performing Organization Address City/State/ZIP Code Phon e Number [facility] [address] [place] [address] SERVICES [facility] [address] [place] [address] documented in this encounter Visit Diagnoses Not on filedocumented in this encounter Care Teams Daylight Driller Relationship Specialty Start Date End Date Ajamie, Evgeny, MD PCP - General 04/16/09 06/05/15 [address] [place] [phone] documented as of this encounter
--- OUTSIDE RECORDS SUMMARY | 2022-01-16 01:46 | XMS_ITS | Encounter Summary ---
:1940 Author Organization [facility] Address [address] [place] [address] Care Team Providers Name Role Phone Nikolay Michele MD Primary Care Provider Unavailable Encounter Details Date Type Department Care Team Description 06/13/2015 Hospital Encounter [facility]- Hillary Unknown, Provider, [facility] [address] [place] [address] [place] [address] (Work) [phone] Social History Tobacco Use Types Packs/Day Years Used Date Smoking Tobacco: Never Assessed Sex Assigned at Date Recorded Not on file documented as of this encounter Discharge Disposition Disposition Code Departure Means Destination Home or Self Senior Living documented in this encounter Plan of Treatment Not on filedocumented as of this encounter Procedures Procedure Name Priority Date/Time Associated Diagnosis Comme [facility] SURGICAL PATHOLOGY Routine 06/17/2015 9:51 EDT Re sults for this procedure are i n the results section. documented in this encounter Results SURGICAL PATHOLOGY (06/17/2015 9:51 EDT) Component Value Ref Test Analysis Performed At [facility] Method Time Signature Pathology SURGICAL PATHOLOGY REPORT [facility] MEDICAL Report: Reports generated via electronic interface contain origina l data; CENTER however they are lacking the format of the original report. LABORATORY Caution should be taken when reading/interpreting unformat mago reports. SERVICES Name: ? NANDA COLLIER ? Accession #: ? [id number] ? : ? 1940 (Age: [age]) ??F ? Collect Date: ? 06/17/2015 ? Location: ? [facility] ? Receive Date: ? 06/18/2015 ? Provider: TARAN CASTRO MD Copy to: NIKOLAY MICHELE MD ? Final Pathologic Diagnosis: SKIN OF SHOULDER, RIGHT, RE-EXCISION: - Residual basal cell carcinoma, nodular type. - Margins of excision negative. - Lesion measures approximately 1.8 mm to the n earest peripheral (3 o'clock) margin. - Lesion measures approximately 3.0 mm to the deep margin. - Epidermal reparative change and dermal scar. Document reviewed and electronically signed by: BECKY REED MD Report ??Date: 06/19/2015 14:12 By the signature above, the attending physician certifies at he/she has personally conducted a gross and/or microscopic examin ation of the described specimens and rendered or confirmed the above diagnosis. Specimen(s) Received: Basal cell cancer right shoulder, superior medial with sutur e Clinical History: Basal cell carcinoma Gross Description: ? Received in formalin labelled with proper patient identification (initials C, C) and right shoulder superior medial suture is an or iented elliptical excision of pink-urbina skin with a suture designating gonzalez perior medial, further designated as 12 o'clock (5.0 cm from 12 o'clock to 6 o'clock, 1.1 cm from 3 o'clock to 9 o'clock, and is excised to a depth of 2.6 cm). There is a central healing linear scar with mul tiple blue sutures on the skin surface that measures 3.8 cm in length and 0.3 cm in diameter. Upon removal of santo e sutures, the central incision reopened revealing a de pth of 1.0 cm. The 3 o'clock aspect is blue inked and the 9 o'clock aspect is black inked. e specimen is serially sectioned from 12 o'clock to 6 o'clock and is entirely submitted as follows: BLOCK PRESTON 1- ??12 o'clock tip, reverse en face 2- ??6 o'clock tip, reverse en face 3-15- ??central sections Pedro Mattsonoit 06/18/2015 10:40 AM End of Report Specimen Anatomical Collection Method Collection Time Receive d Time (Source) Location / / Volume Laterality 06/17/2015 9:51 06/18/2015 9 :51 EDT EDT Taran Castro MD PATHOLOGY ORDERABLES Performing Organization Address City/State/ZIP Code Phon e Number [facility] [address] [place] [address] SERVICES documented in this encounter Visit Diagnoses Not on filedocumented in this encounter Care Teams Blasting Entryman Relationship Specialty Start Date End Date Nikolay Michele MD PCP - General 06/06/15 documented as of this encounter
--- OUTSIDE RECORDS SUMMARY | 2022-01-16 01:46 | XMS_ITS | Encounter Summary ---
:1940 Author Organization [facility] Address [address] [place] [address] Care Team Providers Name Role Phone Evgeny King MD Primary Care Provider Encounter Details Date Type Department Care Team Description 03/24/2007 Results Only [facility] - Veronica Flannery son, Agnes L, UPHOLSTERER INSIDE conversion [address] [place] [phone] (Wo rk) Social History Tobacco Use Types Packs/Day Years Used Date Smoking Tobacco: Never Assessed Sex Assigned at Date Recorded Not on file documented as of this encounter Plan of Treatment Not on filedocumented as of this encounter Procedures Procedure Name Priority Date/Time Associated Diagnosis Comme [facility] CYTOPATHOLOGY Routine 03/24/2007 0:00 EST Results for this procedure are i n the results section . documented in this encounter Results CYTOPATHOLOGY (03/24/2007 0:00 EST) Component Value Ref Test Analysis Performed At [facility] Method Time [facility] Pathology CYTOPATHOLOGY REPORT [facility] Report: [facility] Reports generated via electronic interface contain original data; however they are lacking the format of the original report. Caution should be taken when reading/interpreting unformatte d reports. Name: ? NANDA COLLIER ? Accession #: ? [id number] : ? 1940 (Age: 66) ??F ?Collect Date: ? 03/24/2007 Location: ? [facility] ? Receive Date: ? 03/25/2007 Provider: ?AGNES RODGERS UPHOLSTERER INSIDE Copy to: ? Specimen/Source: ? ThinPrep Pap Test, Cervix, processed on [employer] ThinPrep Imaging System, with manual evaluation Last Menstrual Period: ? 1996 Other: ? HPVA - HPV testing requested if ASC-US on the current ThinPr ep Pap test. ? SPECIMEN ADEQUACY ? Satisfactory for Evaluation - assessment of transformation zone component not appl icable ( e.g. atrophy, vaginal sample, hysterectomy) GENERAL CATEGORIZATION ? Negative for Intraepithelial Lesion or Malignancy ? Document reviewed and electronically signed by: ? Sylvie Marshall, [facility](ASCP) ? Report Date: ??03/30/2007 14:41 End of Report Specimen (Source) Anatomical Location Collection Method / Collectio n Time Received Time / Laterality Volume 03/24/2007 03/25/2007 Agnes Rodgers NP PATHOLOGY ORDERABLES Performing Organization Address City/State/ZIP Code Phon e Number [facility] [address] [place] [address] SERVICES [facility] [address] [place] [address] documented in this encounter Visit Diagnoses Not on filedocumented in this encounter Care Teams Box Toe Stitcher Relationship Specialty Start Date End Date Evgeny King MD PCP - General 04/16/09 06/05/[address] [place] [phone] documented as of this encounter
--- OUTSIDE RECORDS SUMMARY | 2022-01-16 01:46 | XMS_ITS | Encounter Summary ---
:[address] [facility] Address [address] [place] [address] Care Team Providers Name Role Phone Evgeny King MD Primary Care Provider Encounter Details Date Type Department Care Team Description 03/17/2006 Results Only [facility] - Veronica Flannery son, Agnes L, SLAT BASKET TOP MAKER conversion [address] [place] [phone] (Wo rk) Social History Tobacco Use Types Packs/Day Years Used Date Smoking Tobacco: Never Assessed Sex Assigned at Date Recorded Not on file documented as of this encounter Plan of Treatment Not on filedocumented as of this encounter Procedures Procedure Name Priority Date/Time Associated Diagnosis Comme [facility] CYTOPATHOLOGY Routine 03/17/2006 0:00 EST Results for this procedure are i n the results section . documented in this encounter Results CYTOPATHOLOGY (03/17/2006 0:00 EST) Component Value Ref Test Analysis Performed At [facility] Method Time [facility] Pathology CYTOPATHOLOGY REPORT [facility] Report: [facility] Reports generated via electronic interface contain original data; however they are lacking the format of the original report. Caution should be taken when reading/interpreting unformatte d reports. Name: ? NANDA COLLIER ? Accession #: ? [id number] : ? 1940 (Age: 65) ??F ?Collect Date: ? 03/17/2006 Location: ? [facility] ? Receive Date: ? 03/18/2006 Provider: ?AGNES RODGERS SLAT BASKET TOP MAKER Copy to: ? Specimen/Source: ? ThinPrep Pap Test, Cervix, processed on [employer] ThinPrep Imaging System, with manual evaluation Last [...] and electronically signed by: ? Sylvie Marshall, [facility](ASCP) ? Report Date: ??03/19/2006 15:46 End of Report Specimen (Source) Anatomical Location Collection Method / Collectio n Time Received Time / Laterality Volume 03/17/2006 03/18/2006 Agnes Rodgers NP PATHOLOGY ORDERABLES Performing Organization Address City/State/ZIP Code Phon e Number [facility] [address] [place] [address] SERVICES [facility] [address] [place] [address] documented in this encounter Visit Diagnoses Not on filedocumented in this encounter Care Teams Account Executive Trainee Relationship Specialty Start Date End Date Evgeny King MD PCP - General 04/16/09 06/05/[address] [place] [phone] documented as of this encounter
--- OUTSIDE RECORDS SUMMARY | 2022-01-16 01:46 | XMS_ITS | Encounter Summary ---
:1940 Author Organization [facility] Address [address] [place] [address] Care Team Providers Name Role Phone Nikolay Michele MD Primary Care Provider Unavailable Encounter Details Date Type Department Care Team Description 06/13/2015 Results Only [facility]- Surinder Monge [place] [phone] [facility] [place], [place] [phone] (Wo rk) Social History Tobacco Use Types Packs/Day Years Used Date Smoking Tobacco: Never Assessed Sex Assigned at Date Recorded Not on file documented as of this encounter Plan of Treatment Not on filedocumented as of this encounter Procedures Procedure Name Priority Date/Time Associated Diagnosis Comme [facility] SURGICAL PATHOLOGY Routine 06/13/2015 21:16 Resul ts for this EDT procedure are i n the results section. documented in this encounter Results SURGICAL PATHOLOGY (06/13/2015 21:16 EDT) Component Value Ref Test Analysis Performed At [facility] Method Time Signature Pathology SURGICAL PATHOLOGY REPORT [facility] MEDICAL Report: Reports generated via electronic interface contain [facility] data; CENTER however they are lacking the format of the original report. LABORATORY Caution should be taken when reading/interpreting unformat mago reports. SERVICES Name: ? NANDA COLLIER ? Accession #: ? [id number] ? : ? 1940 (Age: 8 3) ??F ? Collect Date: ? 06/13/2015 ? Location: ? [facility] ? Receive Date: ? 06/13/2015 ? Provider: SURINDER SANDOVAL Copy to: NIKOLAY MICHELE MD ? Final Pathologic Diagnosis: SKIN OF SHOULDER, EXCISION: - Basal cell carcinoma, nodular type. ??See comment. - Deep margin POSITIVE for basal cell carcinoma. Comment: The excision consists of bas al cell carcinoma with nodular growth pattern. ??The basal cell carcinoma spans m uch of the excision specimen and is transected along the deep margin. ??It is present within 0.5 mm o f the peripheral margin. ??In addition, there are separate fragments of tumor without orie ntation. Correlation with the clinical history is recommended. ??(Dr. Zavala)/mpl Microscopic Description: Irregularly shaped islands o f atypical basal cells infiltrate the dermis. ??The basal cells have scant cytoplasm and round dark nuclei. ??Mitotic figures and apoptotic bodies are evident . ??The nuclei at the periphery of the islands have a palisaded arrangement. ??The islands are associated with a fibromyxoid stroma and there is cleft formation bet ween some of the islands and stroma. ??(Dr. Zavala)/mpl Document reviewed and electronically signed by: DELORES ZAVALA MD Report ??Date: 06/17/2015 14:57 By the signature above, the attending physician certifies th at he/she has personally conducted a gross and/or microscopic examin ation of the described specimens and rendered or confirmed the above diagnosis. Specimen(s) Received: Excision of shoulder lesion Clinical History: Excision of shoulder lesion Gross Description: ? Received in formalin labelled with proper patient identification (initials C, C) and excision of shoulder lesion is an unoriented, previously disrupted elliptical skin excision (2.8 x 1.8 cm and is excised to a depth of 0.2 cm, following reconstruction). A lso within the container is an aggregate of urbina-pink coarse, partially hemorrhagic soft tissue (1.5 x 1.2 x 0.5 c m). ? On the skin ellipse i s a central disruption (1.5 x 0.5 cm) that is rounded by urbina-hernández hypopigmented skin with a urbina-hernández l obulated, scaly papule (0.8 x 0.8 x 0.2 cm). Grossly the p apule is 0.2 cm from the nearest peripheral margin. The surgical margin is inked blue. The specimen is serially sectioned and submitted entirely as follows: BLOCK PRESTON 1- ??tips, reverse en face 2-4- ??central sections 5- ??additional soft tissue 06/14/2015 8:44 AM End of Report Specimen Anatomical Collection Method Collection Time Receive d Time (Source) Location / / Volume Laterality 06/13/2015 21:16 06/13/2015 EDT 21:16 EDT Surinder SANDOVAL PATHOLOGY ORDERABLES Performing Organization Address City/State/ZIP Code Phon e Number [facility] [address] [place] [address] SERVICES documented in this encounter Visit Diagnoses Not on filedocumented in this encounter Care Teams Dipper Clock And Watch Hands Relationship Specialty Start Date End Date Nikolay Michele MD PCP - General 06/06/15 documented as of this encounter
--- OUTSIDE RECORDS SUMMARY | 2022-01-16 01:46 | XMS_ITS | Encounter Summary ---
:1940 Author Organization [facility] Address [address] [place] [address] Care Team Providers Name Role Phone Evgeny King MD Primary Care Provider Encounter Details Date Type Department Care Team Description 08/07/2004 Results Only [facility] - Veronica Flannery son, Agnes L, ANAESTHESIOLOGIST conversion [address] [place] [phone] (Wo rk) Social History Tobacco Use Types Packs/Day Years Used Date Smoking Tobacco: Never Assessed Sex Assigned at Date Recorded Not on file documented as of this encounter Plan of Treatment Not on filedocumented as of this encounter Procedures Procedure Name Priority Date/Time Associated Diagnosis Comme [facility] CYTOPATHOLOGY Routine 08/07/2004 0:00 EDT Results for this procedure are i n the results section . documented in this encounter Results CYTOPATHOLOGY (08/07/2004 0:00 EDT) Component Value Ref Test Analysis Performed At [facility] Pathology CYTOPATHOLOGY REPORT [facility] Report: [facility] Reports generated via electronic interface contain original data; however they are lacking the format of the original report. Caution should be taken when reading/interpreting unformatte d reports. Name: ? NANDA COLLIER ? Accession #: ? [id number] : ? 1940 (Age: 63) ??F ?Collect Date: ? 08/07/2004 Location: ? [facility] ? Receive Date: ? 08/11/2004 Provider: ?AGNES RODGERS ANAESTHESIOLOGIST Copy to: ? Specimen/Source: ?ThinPrep Pap Test, Cervix/Endoce rvix Last Menstrual Period: ? 1996 ? SPECIMEN ADEQUACY ? Satisfactory for Evaluation - transformation zone component present GENERAL CATEGORIZATION ? Negative for Intraepithelial Lesion or Malignancy ? Document reviewed and electronically signed by: ? Sylvie Marshall, [facility](ASCP) ? Report Date: ??08/14/2004 16:20 End of Report Specimen (Source) Anatomical Location Collection Method / Collectio n Time Received Time / Laterality Volume 08/07/2004 08/11/2004 Agnes Rodgers NP PATHOLOGY ORDERABLES Performing Organization Address City/State/ZIP Code Phon e Number [facility] [address] [place] [address] SERVICES [facility] [address] [place] [address] documented in this encounter Visit Diagnoses Not on filedocumented in this encounter Care Teams Purchasing Department Clerk Relationship Specialty Start Date End Date Evgeny King MD PCP - General 04/16/09 06/05/[address] [place] [phone] documented as of this encounter
--- OUTSIDE RECORDS SUMMARY | 2022-01-16 01:46 | XMS_ITS | Clinical Summary ---
:1940 Author Organization [facility] Address [address] [place] [address] Care Team Providers Name Role Phone Nikolay Beverly DO Primary Care Provider Social History Tobacco Use Types Packs/Day Years Used Date Smoking Tobacco: Never Assessed Sex Assigned at Date Recorded Not on file Plan of Treatment Health Maintenance Due Date Last Done Comments COVID-19 Vaccine (#1) 05/27/1941 Fall Risk Screening 2006 Insurance Payer Benefit Plan Subscriber ID Effective Phone Address Typ e / Group Dates MEDICARE MEDICARE A/B [id number] 2006-Pre [address] edicare GL sent [address] [place] [phone] [facility] [id number] 2019-Pres [phone] [address] ercial [facility] [phone] [place] [address] Care Teams Shield Cleaner Relationship Specialty Start Date End Date Nikolay Beverly DO PCP - General 09/29/[address] [facility] [address] [place] [phone]
[2022-01-16 10:10] LABS: ALT 18 U/L (14-59); AST 15 U/L (15-37); Alkaline Phosphatase 91 U/L (46-116); Anion Gap 9.4 mmol/L (3-11); BUN 9 mg/dL (7-18); Bilirubin, Total 0.5 mg/dL (0.2-1.0); CO2 27.6 mmol/L (21.0-32.0); CREATININE 0.9 mg/dL (0.55-1.02); Calcium 9.4 mg/dL (8.5-10.1); Chloride 101 mmol/L (98-107); Estimated GFR 64.63 (mL/min/1.73m2); Glucose 132 mg/dL (74-106); Potassium 3.6 mmol/L (3.5-5.1); Sodium 138 mmol/L (136-145); Total Protein 7.4 g/dL (6.4-8.2)
== END 2022-01-16 01:45 | disposition home or self-care (01) ==
LOC: LBO 01:44
PROVIDERS: PCP Family Medicine; Visit Provider Family Medicine
DX: N18.9 Chronic kidney disease, unspecified (principal)
CPT/HCPCS: 36415; 80053

== ENCOUNTER 2022-09-21 02:43 | Outpatient (CLI) | payer MEDICARE, SELFPAY ==
[2022-09-21 14:57] LABS: ALT 16 U/L (14-59); AST 12 U/L (15-37); Albumin 3.9 g/dL (3.4-5.0); Alkaline Phosphatase 85 U/L (46-116); Anion Gap 8.6 mmol/L (3-11); BUN 11 mg/dL (7-18); Bilirubin, Total 0.3 mg/dL (0.2-1.0); CO2 28.4 mmol/L (21.0-32.0); Calcium 9.2 mg/dL (8.5-10.1); Chloride 100 mmol/L (98-107); Estimated GFR 56.95 (mL/min/1.73m2); Glucose 146 mg/dL (74-106); Magnesium 1.9 mg/dL (1.8-2.4); Potassium 3.5 mmol/L (3.5-5.1); Sodium 137 mmol/L (136-145); TSH (W/Ref FT4) 0.15 uIU/mL (0.36-3.74)
[2022-09-21 15:32] LABS: FREE T4 1.01 ng/dL (0.76-1.46)
[2022-09-23 12:04] LABS: Ceruloplasmin 26.2 mg/dL
== END 2022-09-21 02:44 | disposition home or self-care (01) ==
LOC: LBO 02:43
PROVIDERS: PCP Family Medicine; Visit Provider Family Medicine
DX: R25.1 Tremor, unspecified (principal); R53.1 Weakness; E11.9 Type 2 diabetes mellitus without complications; N18.9 Chronic kidney disease, unspecified; E78.5 Hyperlipidemia, unspecified; I10 Essential (primary) hypertension
CPT/HCPCS: 36415; 80053; 82390; 83735; 84439; 84443

== ENCOUNTER → 2023-01-21 09:29 | Outpatient (BNVA) | payer MEDICARE, SELFPAY | PROVIDERS: PCP Family Medicine; Referring Provider Family Medicine; Visit Provider Psychiatry & Neurology Neurology | DX: G20.C Parkinsonism, unspecified (principal); R29.2 Abnormal reflex; R26.89 Other abnormalities of gait and mobility; I12.9 Hypertensive chronic kidney disease with stage 1 through stage 4 chronic kidney disease, or unspecified chronic kidney disease; E11.22 Type 2 diabetes mellitus with diabetic chronic kidney disease; N18.9 Chronic kidney disease, unspecified | CPT/HCPCS: 99215 ==

== ENCOUNTER 2023-01-26 02:15 | Outpatient (CLI) | payer MEDICARE, SELFPAY ==
[2023-01-26 13:45] LABS: Vitamin B12 837 pg/mL (193-986)
== END 2023-01-26 02:16 | disposition home or self-care (01) ==
LOC: LBO 02:15
PROVIDERS: PCP Family Medicine; Visit Provider Psychiatry & Neurology Neurology
DX: G62.9 Polyneuropathy, unspecified (principal)
CPT/HCPCS: 36415; 82607

== ENCOUNTER → 2023-02-08 00:35 | Outpatient (CLI) | payer MEDICARE, SELFPAY ==
--- NOTE | 2023-02-08 08:00 | DI.MRI_ITS ---
Exam(s) MR BRAIN WO EXAM: MR BRAIN WO CLINICAL HISTORY: imbalance and falls; ?myelopathy,BABINSKI REFLEX,R29.2,R26.9 TECHNIQUE: Multiplanar multisequence MRI of the brain was performed. COMPARISON: No exams were available for comparison FINDINGS: VENTRICLES AND EXTRA AXIAL SPACES: There is mild prominence of the lateral ventricles somewhat out of proportion to the sulci raising the question of normal pressure hydrocephalus. MIDLINE SHIFT: None. CEREBRAL PARENCHYMA: No focus of restricted diffusion to suggest acute infarct. No space-occupying le emmanuel identified. There are several foci of hyperintense signal seen in the white matter on the FLAIR and T2 weighted images consistent with chronic microvascular ischemic disease. HEMORRHAGE: None. BRAINSTEM/CEREBELLUM: Normal. CALVARIUM: Normal. VISUALIZED PARANASAL SINUSES/MASTOIDS:Clear. STANDING ROCK OF MICHAUD: Normal flow void. PITUITARY GLAND: Unremarkable. OTHER FINDINGS: None. IMPRESSION: 1. Mild prominence of the lateral ventricle someone out of proportion to the sulci raising the questi on normal pressure hydrocephalus. 2. Multiple hyperintense foci seen in the white matter on the FLAIR and T2 weighted images consistent with chronic microvascular ischemic disease. DATA REPOSITORY:
--- NOTE | 2023-02-08 08:00 | DI.MRI_ITS ---
Exam(s) MR CERVICAL SPINE WO EXAM: MR CERVICAL SPINE WO CLINICAL HISTORY: ?myelopathy,BABINSKI REFLEX,GAIT ABNORMALITY,R29.2,R26.9 TECHNIQUE: Multiplanar multisequence MRI of the cervical spine was performed without intravenous con trast. COMPARISON: CT CT HEAD CERVICAL SPINE WO from 10/28/2021 FINDINGS: BONES: Vertebral body heights are maintained. Intervertebral disc spaces are normal. 1-2 mm anterolis thesis of C3 on C4 is noted. Bone marrow signal intensity is within normal limits. CERVICAL CORD: Craniovertebral junction is unremarkable. The cervical cord is normal size and signal intensity. There is question of hyperintense signal in the cord at the edge of the film at the T4 lev el. (Series 9001, image 6). SOFT TISSUES: Unremarkable. C2-3: No disc herniation or bulge is identified. No significant central spinal canal or neural forami nal stenosis. C3-4: No disc herniation or bulge is identified. There are degenerative changes of the facets. There is mild narrowing of the neural foramen bilaterally. No significant central spinal canal stenosis. C4-5: No disc herniation or bulge is identified. No significant central spinal canal or neural forami nal stenosis C5-6: Mild degenerative changes of the facets. No focal disc herniation or central spinal canal sten osis. No significant neural foraminal stenosis. C6-7: There is asymmetric prominence of the osteophyte disc complex to the right. No significant marely tral spinal canal stenosis is seen. There are hypertrophic changes of the uncovertebral joint on the right at this level. There is marked right neural foraminal stenosis. No significant left neural f oraminal stenosis. C7-T1: No disc herniation or bulge is identified. No significant central spinal canal or neural va inal stenosis IMPRESSION: 1. Normal signal in the cervical spinal cord. 2. Question of hyperintense signal seen on the T2 weighted images in the thoracic spinal cord at the T4 level. MRI of the thoracic spine should be considered for further evaluation. 3. Multilevel degenerative changes in the cervical spine resulting in bilateral neural foraminal sten osis at C3-C4 and right neural foraminal stenosis at C6-C7. DATA REPOSITORY:
== END ==
PROVIDERS: PCP Family Medicine; Visit Provider Psychiatry & Neurology Neurology
DX: M99.71 Connective tissue and disc stenosis of intervertebral foramina of cervical region (principal); I67.82 Cerebral ischemia
CPT/HCPCS: 70551; 72141

== ENCOUNTER → 2023-03-12 00:38 | Outpatient (CLI) | payer MEDICARE, SELFPAY ==
--- NOTE | 2023-03-12 07:45 | DI.MRI_ITS ---
Exam(s) MR THORACIC SPINE WO EXAM: MR THORACIC SPINE WO CLINICAL HISTORY: gait imbalance; ? T4 abnormality,BABINSKI REFLEX,R29.2,R26.9 TECHNIQUE: Multiplanar multisequence MRI of the thoracic spine was performed without intravenous con trast. COMPARISON: MR MR CERVICAL SPINE WO from 02/08/2023 FINDINGS: OSSEOUS: There are no thoracic vertebral compression fractures nor ominous osseous lesions. There is a small benign-appearing intraosseous hemangioma in the superior aspect of the T12 vertebral body. Another seen anteriorly in the vertebral body of T6. THORACIC SPINAL CORD: There is no abnormal signal in the cervical spinal cord and no evidence of foca l cord atrophy nor focal cord swelling. There is no evidence of syringomyelia nor significant spinal cord dysraphism. There is no evidence of mass at the conus medullaris. The position of the conus me dullaris is at L1 level. SIGNIFICANT INDIVIDUAL LEVEL FINDINGS: T4-5: There is a E central disc protrusion at this level which extends posteriorly 3 mm and is approx imately 10 mm wide. This indents the anterior thecal sac and with slight flattening of the anterior contour of the spinal cord at this level. There is, however, no abnormal signal in the cord at this level. The actual central canal measurements are within normal limits. There is no disc extension i nto the exiting neural foramina and there is no evidence of foraminal stenosis at this level T11-12 there is posterior annular bulging at this level which indents the thecal sac but not the spin al cord. Central canal dimensions are within normal limits. No foraminal stenosis at this level. C6-7: As described on the recent dedicated cervical spine MRI there is disc-Luschka joint osteophyte complex on the right side at this level with significant right-sided foraminal stenosis. PARASPINAL TISSUES: No significant masses nor fluid collections evident. IMPRESSION: 1. There are disc protrusions at T4-5 at T11-12, as described above. These disc protrusions indent t he thecal sac. However, there is no tight spinal canal stenosis and there is no foraminal stenosis o n either side at these 2 levels. C6-7 right-sided findings as described on the recent cervical spine MRI. 2. Other levels in the thoracic spinal column appear unremarkable. 3. No fractures. No ominous osseous lesions. DATA REPOSITORY:
== END ==
PROVIDERS: PCP Family Medicine; Visit Provider Psychiatry & Neurology Neurology
DX: R26.9 Unspecified abnormalities of gait and mobility (principal); M51.24 Other intervertebral disc displacement, thoracic region
CPT/HCPCS: 72146

== ENCOUNTER → 2023-03-17 12:39 | Outpatient (BNVA) | payer MEDICARE, SELFPAY | PROVIDERS: PCP Family Medicine; Referring Provider Family Medicine; Visit Provider Psychiatry & Neurology Neurology | DX: G20.C Parkinsonism, unspecified (principal); R29.2 Abnormal reflex; R26.9 Unspecified abnormalities of gait and mobility | CPT/HCPCS: 99215 ==

== ENCOUNTER → 2023-05-12 14:02 | Outpatient (BNVA) | payer MEDICARE, SELFPAY | PROVIDERS: PCP Family Medicine; Referring Provider Family Medicine; Visit Provider Psychiatry & Neurology Neurology | DX: R29.2 Abnormal reflex (principal); R26.9 Unspecified abnormalities of gait and mobility; G20.C Parkinsonism, unspecified; F03.90 Unspecified dementia, unspecified severity, without behavioral disturbance, psychotic disturbance, mood disturbance, and anxiety | CPT/HCPCS: 99214 ==

== ENCOUNTER → 2023-06-28 13:25 | Outpatient (BNVA) | payer MEDICARE, SELFPAY | PROVIDERS: PCP Family Medicine; Referring Provider Family Medicine; Visit Provider Podiatrist | DX: E11.51 Type 2 diabetes mellitus with diabetic peripheral angiopathy without gangrene (principal); M79.675 Pain in left toe(s); M79.674 Pain in right toe(s); B35.1 Tinea unguium; E11.43 Type 2 diabetes mellitus with diabetic autonomic (poly)neuropathy | CPT/HCPCS: 11721 ==

== ENCOUNTER → 2023-07-14 12:43 | Outpatient (BNVA) | payer MEDICARE, SELFPAY | PROVIDERS: PCP Family Medicine; Referring Provider Family Medicine; Visit Provider Psychiatry & Neurology Neurology | DX: R29.2 Abnormal reflex (principal); R26.9 Unspecified abnormalities of gait and mobility; G20.C Parkinsonism, unspecified; F03.90 Unspecified dementia, unspecified severity, without behavioral disturbance, psychotic disturbance, mood disturbance, and anxiety; H91.93 Unspecified hearing loss, bilateral | CPT/HCPCS: 99215 ==

== ENCOUNTER → 2023-09-01 09:42 | Outpatient (BNVA) | payer MEDICARE, SELFPAY | PROVIDERS: PCP Family Medicine; Referring Provider Family Medicine; Visit Provider Psychiatry & Neurology Neurology | DX: R29.2 Abnormal reflex (principal); R26.9 Unspecified abnormalities of gait and mobility; G20.C Parkinsonism, unspecified; F03.90 Unspecified dementia, unspecified severity, without behavioral disturbance, psychotic disturbance, mood disturbance, and anxiety; H91.93 Unspecified hearing loss, bilateral | CPT/HCPCS: 99214 ==

== ENCOUNTER → 2023-09-24 01:08 | Outpatient (CLI) | payer MEDICARE, SELFPAY ==
--- OUTSIDE RECORDS SUMMARY | 2023-09-24 01:10 | XMS_ITS | Encounter Summary ---
Author Organization [facility] Address [address] [place] [address] Care Team Providers Care Print Room Worker Name Role Phone Evgeny King MD Primary Care Provider [phone] Encounter Details Date Type Department Care Team (Latest Contact Info) Description 05/31/2015 7:31 EDT - 05/31/2015 23:59 EDT Hospital Encounter [facility] [address] [place] [address] Unknown, Provider, Discharge Disposition: Home or Self Care Social History Tobacco Use Types Packs/Day Years Used Date Smoking Tobacco: Never Assessed Sex and Gender Information Value Date Recorded Sex Assigned at Not on file Gender Identity Not on file Sexual Orientation Not on file documented as of this encounter Discharge Disposition Disposition Code Departure Means Destination Home or Self Long-Term documented in this encounter Plan of Treatment Not on file documented as of this encounter Visit Diagnoses Not on filedocumented in this encounter Care Teams Print Room Worker Relationship Specialty Start Date End Date Evgeny King MD [address] [place] [address] PCP - General 04/16/09 06/05/15 documented as of this encounter
--- OUTSIDE RECORDS SUMMARY | 2023-09-24 01:10 | XMS_ITS | Referral Summary ---
Author Organization [facility] Address [address] [place] [address] Care Team Providers Care Fashion Photographer Name Role Phone Nikolay Beverly DO Primary Care Provider [phone] Social History Tobacco Use Types Packs/Day Years Used Date Smoking Tobacco: Never Assessed Interpersonal Safety Answer Date Record ed Physically Hurt Never 10/10/2019 Verbally Threaten Not on file 10/10/2019 Sex and Gender Information Value Date Recorded Sex Assigned at Not on file Gender Identity Not on file Sexual Orientation Not on file Plan of Treatment Not on file Care Teams Fashion Photographer Relationship Specialty Start Date End Date Nikolay Beverly DO [address] [place] [address] PCP - General 09/29/19
--- OUTSIDE RECORDS SUMMARY | 2023-09-24 01:10 | XMS_ITS | Encounter Summary ---
Author Organization [facility] Address [address] [place] [address] Care Team Providers Care Groundhand Name Role Phone Evgeny King MD Primary Care Provider [phone] Encounter Details Date Type Department Care Team (Late st Contact Info) Description 03/17/2006 Results Only [facility] [address] [place] [address] Agnes Rodgers, GEOTECHNICIAL PROPERTIES TECHNICIAN [address] [place] [address] Social History Tobacco Use Types Packs/Day Years Used Date Smoking Tobacco: Never Assessed Sex and Gender Information Value Date Recorded Sex Assigned at Not on file Gender Identity Not on file Sexual Orientation Not on file documented as of this encounter Plan of Treatment Not on file documented as of this encounter Procedures Procedure Name Priority Date/Time Associated Diagnosis Comments CYTOPATHOLOGY Routine 03/17/2006 0:00 EST documented in this encounter Results * CYTOPATHOLOGY (03/17/2006 0:00 EST) Pathology Report: CYTOPATHOLOGY REPORT Reports generated via electronic interface contain original data; however they are lacking the format of the original report. Caution should be taken when reading/interpreti ng unformatted reports. Name: ? NANDA COLLIER ? Accession #: ? [id number] : ? 1940 (Age: 65) ??F ?Collect Date: ? 03/17/2006 Location: ? [facility] ? Receive Date: ? 03/18/2006 Provider: ?AGNES RODGERS GEOTECHNICIAL PROPERTIES TECHNICIAN Copy to: ? Specimen/Source: ?ThinPrep Pap Test, Cervix, processed on [employer] ThinPrep Imaging System, with manual evaluation Last Menstrual Period: ? 1996 Other: ? HPVA - HPV testing requested if ASC-US on the current ThinPrep Pap test. ? SPECIMEN ADEQUACY ? Satisfactory for Evaluation - assessment of transformation zone component not applicable ( e.g. atrophy, vaginal sample, hysterectomy) GENERAL CATEGORIZATION ? Negative for Intraepithelial Lesion or Malignancy ? Document reviewed and electronically signed by: ? Sylvie Marshall, SCT(ASCP) ? Report Date: ??03/19/2006 15:46 End of Report [facility] 03/17/2006 03/18/2006 Agnes Rodgers NP PATHOLOGY ORDERABLE S Performing Organization Address City/State/[facility] Co de Phone Number [facility] [address] [place] [address] documented in this encounter Visit Diagnoses Not on filedocumented in this encounter Care Teams Groundhand Relationship Specialty Start Date End Date Evgeny King MD [address] [place] [address] PCP - General 04/16/09 06/05/15 documented as of this encounter
--- OUTSIDE RECORDS SUMMARY | 2023-09-24 01:10 | XMS_ITS | Encounter Summary ---
Author Organization [facility] Address [address] [place] [address] Care Team Providers Care Potato Chip Packaging Machine Operator Name Role Phone Evgeny King MD Primary Care Provider [phone] Encounter Details Date Type Department Care Team (Late st Contact Info) Description 04/16/2009 Results Only [facility] - [facility] ([facility] [address] [place], [place] [phone] Agnes Rodgers, RETAIL CLERK [address] [place] [address] Social History Tobacco Use Types Packs/Day Years Used Date Smoking Tobacco: Never Assessed Sex and Gender Information Value Date Recorded Sex Assigned at Not on file Gender Identity Not on file Sexual Orientation Not on file documented as of this encounter Plan of Treatment Not on file documented as of this encounter Procedures Procedure Name Priority Date/Time Associated Diagnosis Comments HPV DETECTION, HIGH RISK TYPES Routine 04/16/2009 13:55 EST CYTOPATHOLOGY Routine 04/16/2009 0:00 EST documented in this encounter Results * HUMAN PAPILLOMA VIRUS DNA TEST (04/16/2009 13:55 EST) Specimen Description Cervix, ThinPrep vial [facility] Result Negative for HPV types 16, 18, 31, 33, 35, 39, 45, 51, 52, 56, 58, 59, and 68. [facility] Report Status Final 04/23/2009 [facility] 04/16/2009 13:5 5 EST 04/18/2009 13:55 EST Agnes Rodgers NP MICROBIOLOGY - GENE RAL ORDERABLES [facility] [address] [place] [id number] * CYTOPATHOLOGY (04/16/2009 0:00 EST) Pathology Report: CYTOPATHOLOGY REPORT ? Reports generated via electronic interface contain original data; ? however they are lacking the format of the original report. ? Caution should be taken when reading/interpreti ng unformatted reports. ? Name: ? NANDA COLLIER ? Accession #: ? [id number] ? : ? 1940 (Age: 68) ??F ?Collect Date: ? 04/16/2009 ? Location: ? [facility] ? Receive Date: ? 04/16/2009 ? Provider: ?AGNES L RODGERS RETAIL CLERK ? Copy to: ? Specimen/Source: ?Pap Test, Endocervix, ThinPrep Imaging System with ? manual evaluation ? Last Menstrual Period: ? > 20 yrs ? Other: ? HPVDX - HPV testing requested regardless of diagnosis on current ThinPrep Pap ?? test. ? SPECIMEN ADEQUACY ? Satisfactory for Evaluation ? - assessment of transformation zone component not applicable ( e.g. atrophy, ? vaginal sample, hysterectomy) ? GENERAL CATEGORIZATION ? Negative for Intraepithelial Lesion or Malignancy ? Document reviewed and electronically signed by: ? Angelica Verville,CT(ASCP) ? Report Date: ??04/18/2009 07:43 ? End of Report ? [facility] 04/16/2009 04/16/2009 Agnes oRdgers RETAIL CLERK PATHOLOGY ORDERABLE S [facility] [address] [place] [address] documented in this encounter Visit Diagnoses Not on filedocumented in this encounter Care Teams Potato Chip Packaging Machine Operator Relationship Specialty Start Date End Date Evgeny King MD [address] [place] [address] PCP - General 04/16/09 06/05/15 documented as of this encounter
--- OUTSIDE RECORDS SUMMARY | 2023-09-24 01:10 | XMS_ITS | Encounter Summary ---
Author Organization [facility] Address [address] [place] [address] Care Team Providers Care Drum Reel Cutter Name Role Phone Nikolay Michele MD Primary Care Provider Unav ailable Encounter Details Date Type Department Care Team (Late st Contact Info) Description 03/09/2016 Results Only [facility] [phone] Roger Castro MD [address] [place] [phone] Social History Tobacco Use Types Packs/Day Years Used Date Smoking Tobacco: Never Assessed Sex and Gender Information Value Date Recorded Sex Assigned at Not on file Gender Identity Not on file Sexual Orientation Not on file documented as of this encounter Plan of Treatment Not on file documented as of this encounter Procedures Procedure Name Priority Date/Time Associated Diagnosis Comments SURGICAL PATHOLOGY Routine 03/09/2016 15 :24 EST documented in this encounter Results * SURGICAL PATHOLOGY (03/09/2016 15:24 EST) Pathology Report: SURGICAL PATHOLOGY REPORT Reports generated via electronic interface contain original data; however they are lacking the format of the original report. Caution should be taken when reading/interpretin g unformatted reports. Name: ? NANDA COLLIER ? Accession #: ? [id number] ? : ? 1940 (Age: 75) ??F ? Collect Date: ? 03/09/2016 ? Location: ? [facility] ? Receive Date: ? 03/09/2016 ? Provider: ROGER CASTRO MD Copy to: NIKOLAY MICHELE MD ? Final Pathologic Diagnosis: A. COLON, ASCENDING, POLYPS, BIOPSY: - ??Fragment of tubular adenoma. - ??Fragment of sessile serrated adenoma. ?? B. COLON, ASCENDING, POLYP, BIOPSY: - ??Submucosal leiomyoma. - ??Overlying epithelium with hyperplastic change. Comment: Part B: deeper sections examined. DESMIN (D33, [employer]) (B): Positive in spindled cells. NOTE: ??One or more of the reagents used in immunoperoxidase testing in this case may not have been cleared or approved by the U.S. Food and Drug Administration (FDA). ??The FDA has determined that such clearance or approval is not necessary. ??These tests are used for clinical purposes. ??They should not be regarded as investigational or for research. ??These reagents' performance characteristics have been determined by [facility]. ??The positive and negative controls worked appropriately. If immunoperoxidase staining has been performed on alcohol fixed cytology specimens, which has not been fully validated, the assays should be interpreted with caution and correlated with clinical data. ??This laboratory is certified under the Clinical Laboratory Improvement Amendments of 1988 (CLIA-88) as qualified to perform high complexity clinical laboratory testing. Dr. Guerra 03/11/2016 6:12 PM Document reviewed and electronically signed by: GUILLERMO GUERRA MD Report ??Date: 03/11/2016 18:19 By the signature above, the attending physician certifies that he/she has personally conducted a gross and/or microscopic examination of the described specimens and rendered or confirmed the above diagnosis. Specimen(s) Received: A. ??Ascending colon polyp x2 B. ??Ascending colon polyp Clinical History: Screening; clinical diagnosis code: Z12.11 Gross Description: A. ?Received in formalin labelled with proper patient identification (initials C, C) and #1 ascending colon polyp x2 are two urbina-yellow, focally urbina-brown polypoid tissues (0.3 x 0.3 x 0.2 cm and 0.7 x 0.2 x 0.2 cm). Entirely submitted in A1. B. ?Received in formalin labelled with proper patient identification (initials C, C) and #2 ascending colon polyp are two urbina-yellow to yellow-brown polypoid tissues (0.3 x 0.2 x 0.1 cm and 0.3 x 0.3 x 0.2 cm). Entirely submitted in B1. Winsome Suraj 03/09/2016 3:48 PM End of Report [facility] 03/09/2016 15:2 4 EST 03/09/2016 15:24 EST Roger Castro MD PATHOLOGY ORDERA [facility] Organization Address City/State/ZIP Co de Phone Number [facility] [address] [place] [phone] documented in this encounter Visit Diagnoses Not on filedocumented in this encounter Care Teams Drum Reel Cutter Relationship Specialty Start Date End Date Nikolay Michele MD PCP - General 06/06/15 09/28/19 documented as of this encounter
--- OUTSIDE RECORDS SUMMARY | 2023-09-24 01:10 | XMS_ITS | Encounter Summary ---
Author Organization [facility] Address [address] [place] [address] Care Team Providers Care C D Stripper Name Role Phone Nikolay Michele MD Primary Care Provider Unav ailable Encounter Details Date Type Department Care Team (Late st Contact Info) Description 06/13/[address] [facility] [phone] Surinder James PA [address] [place], [place] [phone] Social History Tobacco Use Types Packs/Day Years Used Date Smoking Tobacco: Never Assessed Sex and Gender Information Value Date Recorded Sex Assigned at Not on file Gender Identity Not on file Sexual Orientation Not on file documented as of this encounter Plan of Treatment Not on file documented as of this encounter Procedures Procedure Name Priority Date/Time Associated Diagnosis Comments SURGICAL PATHOLOGY Routine 06/13/2015 21 :16 EDT documented in this encounter Results * SURGICAL PATHOLOGY (06/13/2015 21:16 EDT) Pathology Report: SURGICAL PATHOLOGY REPORT Reports generated via electronic interface contain original data; however they are lacking the format of the original report. Caution should be taken when reading/interpret ing unformatted reports. Name: ? NANDA COLLIER ? Accession #: ? [id number] ? : ? 1940 (Age: 74) ??F ? Collect Date: ? 06/13/2015 ? Location: ? [facility] ? Receive Date: ? 06/13/2015 ? Provider: SURINDER SANDOVAL Copy to: NIKOLAY MICHELE MD ? Final Pathologic Diagnosis: SKIN OF SHOULDER, EXCISION: - Basal cell carcinoma, nodular type. ??See comment. - Deep margin POSITIVE for basal cell carcinoma. Comment: The excision consists of basal cell carcinoma with nodular growth pattern. ??The basal cell carcinoma spans much of the excision specimen and is transected along the deep margin. ??It is present within 0.5 mm of the peripheral margin. ??In addition, there are separate fragments of tumor without orientation. Correlation with the clinical history is recommended. ??(Dr. Zavala)/[facility] Microscopic Description: Irregularly shaped islands of atypical basal cells infiltrate the dermis. ??The basal cells have scant cytoplasm and round dark nuclei. ??Mitotic figures and apoptotic bodies are evident. ??The nuclei at the periphery of the islands have a palisaded arrangement. ??The islands are associated with a fibromyxoid stroma and there is cleft formation between some of the islands and stroma. ??(Dr. Zavala)/[facility] Document reviewed and electronically signed by: DELORES [...] a depth of 0.2 cm, following reconstruction). Also within the container is an aggregate of urbina-pink coarse, partially hemorrhagic soft tissue (1.5 x 1.2 x 0.5 cm). ? On the skin ellipse is a central disruption (1.5 x 0.5 cm) that is rounded by urbina-hernández hypopigmented skin with a urbina-hernández lobulated, scaly papule (0.8 x 0.8 x 0.2 cm). Grossly the papule is 0.2 cm from the nearest peripheral margin. The surgical margin is inked blue. The specimen is serially sectioned and submitted entirely as follows: BLOCK PRESTON 1- ??tips, reverse en face 2-4- ??central sections 5- ??additional soft tissue Felicia 06/14/2015 8:44 AM End of Report [facility] 06/13/2015 21:1 6 EDT 06/13/2015 21:16 EDT Surinder SANDOVAL PATHOLOGY ORDERABLES [facility] [address] [place] [address] documented in this encounter Visit Diagnoses Not on filedocumented in this encounter Care Teams C D Stripper Relationship Specialty Start Date End Date Nikolay Michele MD PCP - General 06/06/15 09/28/19 documented as of this encounter
--- OUTSIDE RECORDS SUMMARY | 2023-09-24 01:10 | XMS_ITS | Encounter Summary ---
Author Organization [facility] Address [address] [place] [address] Care Team Providers Care Network Programmer Name Role Phone Evgeny King MD Primary Care Provider [phone] Encounter Details Date Type Department Care Team (Late st Contact Info) Description 03/24/2007 Results Only [facility] - Maple conversion [address] [place] [address] Agnes Rodgers, INNER TUBE TUBER MACHINE OPERATOR [address] [place] [address] Social History Tobacco Use Types [...] Priority Date/Time Associated Diagnosis Comments CYTOPATHOLOGY Routine 03/24/2007 0:00 EST documented in this encounter Results * CYTOPATHOLOGY (03/24/2007 0:00 EST) Pathology Report: CYTOPATHOLOGY REPORT Reports generated via electronic interface contain original data; however they are lacking the format of the original report. Caution should be taken when reading/interpreti ng unformatted reports. Name: ? NANDA COLLIER ? Accession #: ? [id number] : ? 1940 (Age: 66) ??F ?Collect Date: ? 03/24/2007 Location: ? [facility] ? Receive Date: ? 03/25/2007 Provider: ?AGNES RODGERS INNER TUBE TUBER MACHINE OPERATOR Copy to: ? Specimen/Source: ?ThinPrep Pap Test, Cervix, processed on [employer] ThinPrep Imaging System, with manual evaluation Last Menstrual Period: ? 1997 Other: ? HPVA - HPV testing requested if ASC-US on the current ThinPrep Pap test. ? SPECIMEN ADEQUACY ? Satisfactory for Evaluation - assessment of transformation zone component not applicable ( e.g. atrophy, vaginal sample, hysterectomy) GENERAL CATEGORIZATION ? Negative for Intraepithelial Lesion or Malignancy ? Document reviewed and electronically signed by: ? Sylvie Marshall, SCT(ASCP) ? Report Date: ??03/30/2007 14:41 End of Report [facility] 03/24/2007 03/25/2007 Agnes Rodgers NP PATHOLOGY ORDERABLE S Performing Organization Address City/State/[facility] Co de Phone Number [facility] [address] [place] [address] documented in this encounter Visit Diagnoses Not on filedocumented in this encounter Care Teams Network Programmer Relationship Specialty Start Date End Date Evgeny King MD [address] [place] [address] PCP - General 04/16/09 06/05/15 documented as of this encounter
--- OUTSIDE RECORDS SUMMARY | 2023-09-24 01:10 | XMS_ITS | Encounter Summary ---
Author Organization [facility] Address [address] [place] [address] Care Team Providers Care Box Estimator Name Role Phone Nikolay Michele MD Primary Care Provider Unav ailable Encounter Details Date Type Department Care Team (Latest Contact Info) Description 06/17/2015 12:37 EDT - 06/17/2015 23:59 EDT Hospital Encounter [address] [address] Unknown, Provider, Discharge Disposition: Home or Self Care Social History Tobacco Use Types Packs/Day Years Used Date Smoking Tobacco: Never Assessed Sex and Gender Information Value Date Recorded Sex Assigned at Not on file Gender Identity Not on file Sexual Orientation Not on file documented as of this encounter Discharge Disposition Disposition Code Departure Means Destination Home or Self Detention documented in this encounter Plan of Treatment Not on file documented as of this encounter Visit Diagnoses Not on filedocumented in this encounter Care Teams Box Estimator Relationship Specialty Start Date End Date Nikolay Michele MD PCP - General 06/06/15 09/28/19 documented as of this encounter
--- OUTSIDE RECORDS SUMMARY | 2023-09-24 01:10 | XMS_ITS | Encounter Summary ---
Author Organization [facility] Address [address] [place] [address] Care Team Providers Care Image Editor Name Role Phone Evgeny King MD Primary Care Provider [phone] Encounter Details Date Type Department Care Team (Late st Contact Info) Description 05/31/2015 Results Only [facility] [phone] Chente James PA [address] [place] [phone] Social History Tobacco Use Types Packs/Day Years Used Date Smoking Tobacco: Never Assessed Sex and Gender Information Value Date Recorded Sex Assigned at Not on file Gender Identity Not on file Sexual Orientation Not on file documented as of this encounter Plan of Treatment Not on file documented as of this encounter Procedures Procedure Name Priority Date/Time Associated Diagnosis Comments SURGICAL PATHOLOGY Routine 05/31/2015 10 :30 EDT documented in this encounter Results * SURGICAL PATHOLOGY (05/31/2015 10:30 EDT) Pathology Report: SURGICAL PATHOLOGY REPORT Reports generated via electronic interface contain original data; however they are lacking the format of the original report. Caution should be taken when reading/interpret ing unformatted reports. Name: ? NANDA COLLIER ? Accession #: ? [id number] ? : ? 1940 (Age: 74) ??F ? Collect Date: ? 05/31/2015 ? Location: ? [facility] ? Receive Date: ? 06/01/2015 ? Provider: CHENTE SANDOVAL Copy to: BLAYNE MARTINEZ MD ? Final Pathologic Diagnosis: SKIN OF SHOULDER, RIGHT, PUNCH BIOPSY: - Basal cell carcinoma, nodular type. - Lesion extends to peripheral edge and base of biopsy specimen. Document reviewed and electronically signed by: BECKY [...] (initials C, C) and skin lesion of right shoulder is a punch-shaped biopsy of urbina-white skin (0.2 cm in diameter and 0.2 cm in thickness). Also received is a urbina-brown soft tissue fragment (0.4 x 0.2 x 0.1 cm). Both tissues are submitted intact in 1. Dr. Toth 06/03/2015 2:12 PM End of Report [facility] 05/31/2015 10:3 0 EDT 06/01/2015 10:30 EDT Chente SANDOVAL PATHOLOGY ORDERABLES [facility] [address] [place] [address] documented in this encounter Visit Diagnoses Not on filedocumented in this encounter Care Teams Image Editor Relationship Specialty Start Date End Date Evgeny King MD [address] [place] [address] PCP - General 04/16/09 06/05/15 documented as of this encounter
--- OUTSIDE RECORDS SUMMARY | 2023-09-24 01:10 | XMS_ITS | Clinical Summary ---
Author Organization [facility] Address [address] [place] [address] Care Team Providers Care Conventional Mortgage Underwriter Name Role Phone Nikolay Beverly DO Primary Care Provider [phone] Social History Tobacco Use Types Packs/Day Years Used Date Smoking Tobacco: Never Assessed Interpersonal Safety Answer Date Record ed Physically Hurt Never 10/10/2019 Verbally Threaten Not on file 10/10/2019 Sex and Gender Information Value Date Recorded Sex Assigned at Not on file Gender Identity Not on file Sexual Orientation Not on file Plan of Treatment Health Maintenance Due Date Last Done Comments RSV Immunization ( o r 60+ Years) (1 - 1-dose 60+ series) 2001 Fall Risk Screening 2006 COVID-19 Vaccine (2022- season) 2022 Care Teams Conventional Mortgage Underwriter Relationship Specialty Start Date End Date Nikolay Beverly DO [address] [place] [address] PCP - General 09/29/19
--- OUTSIDE RECORDS SUMMARY | 2023-09-24 01:10 | XMS_ITS | Encounter Summary ---
Author Organization [facility] Address [address] [place] [address] Care Team Providers Care Securities Research Analyst Name Role Phone Nikolay Beverly Primary Care Provider [phone] Encounter Details Date Type Department Care Team (Late st Contact Info) Description 10/03/2019 Lab Requisition [facility] Pathology & Laboratory Medicine - [address] [address] Taran Gonzalez MD [address] [place] [address] [phone] Encounter for other general examination Social History Tobacco Use Types Packs/Day Years Used Date Smoking Tobacco: Never Assessed Sex and Gender Information Value Date Recorded Sex Assigned at Not on file Gender Identity Not on file Sexual Orientation Not on file documented as of this encounter Plan of Treatment Not on file documented as of this encounter Procedures Procedure Name Priority Date/Time Associated Diagnosis Comments SURGICAL PATHOLOGY Today 10/02/2019 15 :50 EDT Encounter for other general examination documented in this encounter Results * SURGICAL PATHOLOGY (10/02/2019 15:50 EDT) Final Diagnosis A. RECTUM, POLYP X3, BIOPSY: - Hyperplastic polyps. B. COLON, ASCENDING, POLYP, BIOPSY: - Tubular adenoma. C. COLON, TRANSVERSE, POLYP, BIOPSY: - Tubular adenoma. - Consistent with sessile serrated adenoma. D. COLON, DESCENDING, POLYP, BIOPSY: - Tubular adenoma. 10/04/2019 12:00 EDT [facility] Attestation By the signature below, the attending physician certifies that they have 1) personally conducted a gross and/or microscopic examination of the described specimen(s), and/or personally interpreted the results of laboratory testing of the described specimen(s), and 2) personally rendered or confirmed the above diagnosis. 10/04/2019 12:00 [facility] at 1200 Clinical History Screening, history of polyps, family history of colon cancer 10/04/2019 12:00 [facility] Gross Description A. Received in formalin labelled with proper patient identification (initials C, C) and rectal polyps x3 are two urbina brown tissues, 0.2 x 0.2 x 0.2 cm and 0.3 x 0.2 x 0.1 cm. Entirely submitted in A1. NOTE TO PATHOLOGIST: For part A, the requisition lists the specimen as 3, however only 2 pieces of tissue are identified in the specimen container, per the cutting room. B. Received in formalin labelled with proper patient identification (initials C, C) and ascending colon polyp is a urbina irregular tissue, 0.2 x 0.1 x 0.1 cm. Entirely submitted in B1. C. Received in formalin labelled with proper patient identification (initials C, C) and transverse colon polyp are two urbina irregular tissues, 0.1 cm in greatest dimension and 0.2 x 0.2 x 0.1 cm. Entirely submitted in C1. D. Received in formalin labelled with proper patient identification (initials C, C) and descending colon polyp are two urbina irregular tissues, 0.2 x 0.2 x 0.1 cm and 0.2 x 0.1 x 0.1 cm. Entirely submitted in D1. Jessica Machado 10/03/2019 13:28 10/04/2019 12:00 T [facility] Performing Lab [facility] 10/04/2019 12:00 T [facility] Scanned Images 10/04/2019 12:00 [facility] Tissue SPECIMEN FROM RECTUM / Unknown 10/02/2019 15:50 EDT 10/03/2019 6:56 EDT Tissue specimen (specimen) POLYP OF COLON / Unknown 10/02/2019 15:50 EDT 10/03/2019 6:56 EDT Tissue specimen (specimen) POLYP OF COLON / Unknown 10/02/2019 15:50 EDT 10/03/2019 6:56 EDT Tissue specimen (specimen) POLYP OF COLON / Unknown 10/02/2019 15:50 EDT 10/03/2019 6:56 EDT Taran Gonzalez MD PATHOLOGY ORDERA BLES [facility] [address] [place] [address] documented in this encounter Visit Diagnoses Diagnosis Encounter for other general examination documented in this encounter Care Teams Securities Research Analyst Relationship Specialty Start Date End Date Nikolay Beverly DO [address] [place] [phone] PCP - General 09/29/19 documented as of this encounter
--- OUTSIDE RECORDS SUMMARY | 2023-09-24 01:10 | XMS_ITS | Encounter Summary ---
Author Organization [facility] Address [address] [place] [address] Care Team Providers Care Senior Product Analyst Name Role Phone Nikolay Michele MD Primary Care Provider Unav ailable Encounter Details Date Type Department Care Team (Latest Contact Info) Description 06/13/2015 7:51 EDT - 06/13/2015 23:59 EDT Hospital Encounter [address] [address] Unknown, Provider, Discharge Disposition: Home or Self Care Social History Tobacco Use Types Packs/Day Years Used Date Smoking Tobacco: Never Assessed Sex and Gender Information Value Date Recorded Sex Assigned at Not on file Gender Identity Not on file Sexual Orientation Not on file documented as of this encounter Discharge Disposition Disposition Code Departure Means Destination Home or Self Assisted documented in this encounter Plan of Treatment Not on file documented as of this encounter Procedures Procedure Name Priority Date/Time Associated Diagnosis Comments SURGICAL PATHOLOGY Routine 06/17/2015 9:51 EDT documented in this encounter Results * SURGICAL PATHOLOGY (06/17/2015 9:51 EDT) Pathology Report: SURGICAL PATHOLOGY REPORT Reports generated via electronic interface contain original data; however they are lacking the format of the original report. Caution should be taken when reading/interpret ing unformatted reports. Name: ? NANDA COLLIER ? Accession #: ? [id number] ? : ? 1940 (Age: 74) ??F ? Collect Date: ? 06/17/2015 ? Location: ? [facility] ? Receive Date: ? 06/18/2015 ? Provider: TARAN CASTRO MD Copy to: NIKOLAY MICHELE MD ? Final Pathologic Diagnosis: SKIN OF SHOULDER, RIGHT, RE-EXCISION: - Residual basal cell carcinoma, nodular type. - Margins of excision negative. - Lesion measures approximately 1.8 mm to the nearest peripheral (3 o'clock) margin. - Lesion measures [...] cell cancer right shoulder, superior medial with suture Clinical History: Basal cell carcinoma Gross Description: ? Received in formalin labelled with proper patient identification (initials C, C) and right shoulder superior medial suture is an oriented elliptical excision of pink-urbina skin with a suture designating superior medial, further designated as 12 o'clock (5.0 cm from 12 o'clock to 6 o'clock, 1.1 cm from 3 o'clock to 9 o'clock, and is excised to a depth of 2.6 cm). There is a central healing linear scar with multiple blue sutures on the skin surface that measures 3.8 cm in length and 0.3 cm in diameter. Upon removal of blue sutures, the central incision reopened revealing a depth of 1.0 cm. The 3 o'clock aspect is blue inked and the 9 o'clock aspect is black inked. The specimen is serially sectioned from 12 o'clock to 6 o'clock and is entirely submitted as follows: BLOCK PRESTON 1- ??12 o'clock tip, reverse en face 2- ??6 o'clock tip, reverse en face 3-15- ??central sections Pedro Bradley 06/18/2015 10:40 AM End of Report [facility] 06/17/2015 9:51 EDT 06/18/2015 9:51 EDT Taran Castro MD PATHOLOGY ORDERA CONI [facility] [address] [place] [address] documented in this encounter Visit Diagnoses Not on filedocumented in this encounter Care Teams Senior Product Analyst Relationship Specialty Start Date End Date Nikolay Michele MD PCP - General 06/06/15 09/28/19 documented as of this encounter
--- OUTSIDE RECORDS SUMMARY | 2023-09-24 01:10 | XMS_ITS | Encounter Summary ---
Author Organization [facility] Address [address] [place] [address] Care Team Providers Care Fireworks Assembly Supervisor Name Role Phone Evgeny King MD Primary Care Provider [phone] Encounter Details Date Type Department Care Team (Late st Contact Info) Description 08/07/2004 Results Only [facility] [address] [place] [address] Agnes Rodgers, TIRE LAYER [address] [place] [address] Social History Tobacco Use Types [...] Priority Date/Time Associated Diagnosis Comments CYTOPATHOLOGY Routine 08/07/2004 0:00 EDT documented in this encounter Results * CYTOPATHOLOGY (08/07/2004 0:00 EDT) Pathology Report: CYTOPATHOLOGY REPORT Reports generated via electronic interface contain original data; however they are lacking the format of the original report. Caution should be taken when reading/interpreti ng unformatted reports. Name: ? NANDA COLLIER ? Accession #: ? [id number] : ? 1940 (Age: 63) ??F ?Collect Date: ? 08/07/2004 Location: ? [facility] ? Receive Date: ? 08/11/2004 Provider: ?AGNES RODGERS TIRE LAYER Copy to: ? Specimen/Source: ?ThinPrep Pap Test, Cervix/Endocervix Last Menstrual Period: ? 1996 ? SPECIMEN ADEQUACY ? Satisfactory for Evaluation - transformation zone component present GENERAL CATEGORIZATION ? Negative for Intraepithelial Lesion or Malignancy ? Document reviewed and electronically signed by: ? Sylvie Marshall, SCT(ASCP) ? Report Date: ??08/14/2004 16:20 End of Report SAKSHI DUDLEY 08/07/2004 08/11/2004 Agnes Rodgers NP PATHOLOGY ORDERABLE S Performing Organization Address City/State/[facility] Co de Phone Number SAKSHI ROSALES [facility] [address] [place] [address] documented in this encounter Visit Diagnoses Not on filedocumented in this encounter Care Teams Fireworks Assembly Supervisor Relationship Specialty Start Date End Date Evgeny King MD [address] [place] [phone] PCP - General 04/16/09 06/05/15 documented as of this encounter
--- NOTE | 2023-09-24 08:15 | DI.RAD_ITS ---
Exam(s) XR LUMBAR SPINE COMPLETE EXAM: XR LUMBAR SPINE COMPLETE CLINICAL HISTORY: Back pain after a fall, W19.XXXA. TECHNIQUE: 2D digital imaging was performed. Five views. COMPARISON: CT CT THORACIC LUMBAR SPINE REC from 10/28/2021 CR XR RIBS BI INCLUDE CHEST from 09/24/2023 FINDINGS: BONES: No fracture or destructive lesion. Mild compression of the superior endplate of L3, eccentric toward the right. Muscle not evident on the prior exams but is of indeterminate age. Facet degener ative changes greatest at L4-5 and L5-S1. DISKS: Intervertebral disc spaces are maintained. Endplate osteophytes. ALIGNMENT: Lumbar spinal alignment is within normal limits. SOFT TISSUE: Calcification in the abdominal aorta. IMPRESSION: Mild compression fracture of the superior endplate of L3, indeterminate age. Degenerative changes, mainly of the facet joints of the lower lumbar spine. DATA REPOSITORY: RADIATION DOSE DELIVERED:
--- NOTE | 2023-09-24 14:53 | DI.RAD_ITS ---
Exam(s) XR RIBS BI INCLUDE CHEST EXAM: XR RIBS BI INCLUDE CHEST CLINICAL HISTORY: B/L flank pain after a fall, 4 weeks ago, RIB INJURY, S29.9XXA TECHNIQUE: 2D digital imaging was performed. Six images were obtained. COMPARISON: No exams were available for comparison FINDINGS: MEDIASTINUM: Normal. HEART: Normal. PULMONARY VASCULATURE: Normal. LUNGS: Clear. PLEURAL SPACE: No pleural effusion or pneumothorax. BONE:There are degenerative changes seen in the spine in the acromioclavicular joints bilaterally. BILATERAL RIBS: There are chronic healed fracture deformities seen of the anterior aspects of the lef t 7th and 8th ribs. No acute displaced or healing fractures are seen posteriorly in the ribs. OTHER FINDINGS:Normal. IMPRESSION: 1. No acute pulmonary findings. 2. No acute displaced or healing subacute rib fractures are seen at this time. DATA REPOSITORY: RADIATION DOSE DELIVERED:
== END ==
PROVIDERS: PCP Family Medicine; Visit Provider Family Medicine
DX: W19.XXXA Unspecified fall, initial encounter (principal); S29.9XXA Unspecified injury of thorax, initial encounter; S32.030A Wedge compression fracture of third lumbar vertebra, initial encounter for closed fracture; M51.36 Other intervertebral disc degeneration, lumbar region
CPT/HCPCS: 71046; 71110; 72110

== ENCOUNTER → 2023-10-13 12:41 | Outpatient (BNVA) | payer MEDICARE, SELFPAY | PROVIDERS: PCP Family Medicine; Visit Provider Psychiatry & Neurology Neurology | DX: G20.C Parkinsonism, unspecified (principal); R26.9 Unspecified abnormalities of gait and mobility; R29.2 Abnormal reflex; F03.90 Unspecified dementia, unspecified severity, without behavioral disturbance, psychotic disturbance, mood disturbance, and anxiety | CPT/HCPCS: 99215 ==

== ENCOUNTER 2023-10-27 04:16 | Emergency (ER) | payer MEDICARE, SELFPAY ==
[2023-10-27 04:19] VITALS: BP 158/79; PULSE 82; RESP 20; TEMP 36.8; O2SAT 96
--- NOTE | 2023-10-27 04:30 | DI.CT_ITS ---
Exam(s) CT LUMBAR SPINE WO EXAM: CT LUMBAR SPINE WO CLINICAL HISTORY: fall, low lumbar back pain. TECHNIQUE: Imaging Protocol: Axial computed tomography images with coronal and sagittal reformatted images were created and reviewed. COMPARISON: CT CT CHEST/ABD/PEL WO from 10/28/[address] THORACIC LUMBAR SPINE REC from 10/28/2021 CR XR LUMBAR SPINE COMPLETE from 09/24/2023 FINDINGS: Bones: There is again seen a compression fracture of the superior endplate of L3. There is loss of l ess than 20 percent of the height of the vertebral body. The bones are osteopenic. Age-appropriate degenerative changes are present throughout the lumbar spine. Findings include endplate osteophytes and facet arthropathy. Grade 1 anterolisthesis of L4 on L5 is noted and is stable. Soft tissues: There is a 6.7 x 6.6 cm left adnexal cystic lesion. It is incompletely imaged. There are few wall calcifications present. It appears to be related to the left ovary. This was present o n the prior examination from 10/28/2021. No large disk herniations are identified. IMPRESSION: 1. Stable compression fracture of the superior endplate of L3. 2. No acute fracture or subluxation. 3. Stable left adnexal cystic lesion. RADIATION DOSE DELIVERED: 756.65mGy.cm Total DLP 756.65mGy.cm Total DLP DATA REPOSITORY: All CT scans at this facility are submitted to the National Radiology Data Registry (NRDR) Dose Index Registry (DIR) with the [employer] (ACR). RADIATION OPTIMIZATION: All CT scans at this facility use at least one of these dose optimization te chniques: automated exposure control; mA and/or kV adjustment per patient size (includes targeted exa ms where dose is matched to clinical indication); or iterative reconstruction.
--- NOTE | 2023-10-27 04:30 | DI.RAD_ITS ---
Exam(s) XR CHEST 2V PA LATERAL EXAM: XR CHEST 2V PA LATERAL CLINICAL HISTORY: fall TECHNIQUE: 2D digital imaging was performed of the chest. Two images were obtained. PA and lateral views were obtained. COMPARISON: CR XR RIBS BI INCLUDE CHEST from 09/24/2023 FINDINGS: MEDIASTINUM: Normal. HEART: The heart is at the upper limits of normal in size. PULMONARY VASCULATURE: Normal. LUNGS: Clear. PLEURAL SPACE: No pleural effusion or pneumothorax. BONE:Within normal limits for the patient's age. OTHER FINDINGS:Normal. IMPRESSION: No acute pulmonary findings. DATA REPOSITORY: RADIATION DOSE DELIVERED:
[2023-10-27 04:35] VITALS: O2SAT 96
--- NOTE | 2023-10-27 04:42 | ED.GENADUL_ITS ---
Discharge Plan Disposition Patient Disposition: Home Condition: Good Discharge Details Clinical Impression: Fall, Back pain, Compression fracture of lumbar vertebra Primary Care Provider: Nikolay Beverly ED Provider: Bud Dior Home Meds and New Rx's Prescriptions: Continued ascorbate calcium (vitamin C) 500 mg tablet 500 mg PO DAILY ketoconazole 2 % cream 1 applic topical DAILY Qty: 120 6RF Rx Instructions: Apply to toenails once daily carbidopa-levodopa 25-100 mg tablet 1 tab PO BID Rx Instructions: Take it at your morning and your afternoon. clonazepam 0.5 mg tablet 0.5 mg PO BID Qty: 60 3RF acetaminophen [Tylenol Extra Strength] 500 mg tablet 500 mg PO Q4H PRN acetaminophen 325 MG tablet 650 mg PO PRN PRN aspirin [Lo-Dose Aspirin] 81 MG tablet,delayed release (DR/EC) 81 mg PO DAILY (DME) lancets [FreeStyle Lancets] 1 EACH misc 1 ea Miscellaneous BID Rx Instructions: TO TEST BLOOD SUGAR 2X/D multivitamin [Daily Multi-Vitamin] 1 EACH tablet 1 ea PO DAILY Rx Instructions: with 1000 iu of vit d. (DME) FreeStyle Lite Strips 1 EACH strip 1 ea Miscellaneous as directed MDD 2 Qty: 50 11RF Rx Instructions: new diabetes, check before breakfast and before supper, two days a week or as directed, E11.9. magnesium oxide 250 MG tablet 250 mg PO DAILY olanzapine 5 mg tablet 5 mg PO QHS Qty: 90 3RF lisinopril-hydrochlorothiazide [Zestoretic] 20-12.5 mg tablet 1 tab PO DAILY Qty: 90 3RF Rx Instructions: to control BP under 140/80 glimepiride 1 mg tablet 1 mg PO DAILY Qty: 90 1RF calcium carbonate-vitamin D3 1 EACH tablet 1 ea PO DAILY Discharge Instructions Instructions: Vertebral Compression Fracture ED, Preventing Falls ED Additional Instructions: Your XR and CT scan did not show any new injuries. Make sure you use your walker whenever you are walking. Take tylenol over the counter for pain; follow the directions on the bottle. Call physical therapy to schedule an appointment. Call your primary care doctor today to schedule an appointment for within the next week to followup on your visit here. At that visit please discuss your blood pressure which is high here today, as well as medications that may be making you more likely to fall. Return to the emergency department for new or worsening symptoms including uncontrolled pain, new numbness or weakness in your legs, new urinary or bladder incontinence, or if you have any other concerns. Stand Alone Forms: Physical Therapy Referral HPI General Mode of arrival: EMS . Date/Time Provider Initiated Documentation: 10/27/23 04:33 . Limitations to Documentation: no limitations . Information obtained by: patient, family and EMS . HPI Narrative: 82yo F with hx Parkinsonism, abnormal gait with frequent falls, HTN, T2DM, CKD, presenting via EMS after fall. Uses a walker or sometimes a cane at home; this morning around 0300 got up to the bathroom, did not use either device, turned to reach for counter and fell landing on her buttocks. Did not strike her head or lose consciousness. Did take a clonzapam before bed. Reports low back pain, unclear how much worse than usual. No new numbness, tingling, or focal weakness. Otherwise in her usual state of health with no fevers, chills, rash, naseua, vomiting, abdominal pain, chest pain, shortness of breath, lightheadedness, or other concerns. Related Data Home Medications ?Medication ?Instructions ?Recorded ?Confirmed acetaminophen 325 mg tablet 650 mg PO PRN PRN 06/23/12 10/27/23 aspirin 81 mg tablet,delayed 81 mg PO DAILY 06/23/12 10/27/23 release (Lo-Dose Aspirin) lancets 28 gauge ([employer] 06/23/12 09/21/23 Lancets) multivitamin (Daily Multi-Vitamin 1 ea PO DAILY 05/20/15 10/13/23 tablet) blood sugar diagnostic ([employer] #50 strips 12/14/16 09/21/23 Lite Strips) calcium carbonate 600 mg-vitamin 1 ea PO DAILY 01/11/17 10/13/23 D3 20 mcg (800 unit) tablet magnesium oxide 250 mg PO DAILY 08/17/17 10/13/23 ascorbate calcium (vitamin C) 500 500 mg PO DAILY 09/22/19 10/13/23 mg tablet lisinopril 20 1 tab PO DAILY #90 tab-caps 03/22/23 10/27/23 mg-hydrochlorothiazide 12.5 mg tablet (Zestoretic) olanzapine 5 mg tablet 5 mg PO QHS #90 tabs 03/22/23 10/27/23 ketoconazole 2 % topical cream 1 applic topical DAILY #120 grams 06/28/23 10/27/23 glimepiride 1 mg tablet 1 mg PO DAILY #90 tabs 08/05/23 10/27/23 acetaminophen 500 mg tablet 500 mg PO Q4H PRN 09/21/23 10/27/23 (Tylenol Extra Strength) carbidopa 25 mg-levodopa 100 mg 1 tab PO BID 10/13/23 10/27/23 tablet clonazepam 0.5 mg tablet 0.5 mg PO BID #60 tabs 10/13/23 10/27/23 Previous Rx's ?Medication ?Instructions ?Recorded blood sugar diagnostic (FreeStyle #50 strips 12/14/16 Lite Strips) lisinopril 20 1 tab PO DAILY #90 tab-caps 03/22/23 mg-hydrochlorothiazide 12.5 mg tablet (Zestoretic) olanzapine 5 mg tablet 5 mg PO QHS #90 tabs 03/22/23 ketoconazole 2 % topical cream 1 applic topical DAILY #120 grams 06/28/23 glimepiride 1 mg tablet 1 mg PO DAILY #90 tabs 08/05/23 clonazepam 0.5 mg tablet 0.5 mg PO BID #60 tabs 10/13/23 Allergies Allergy/AdvReac Type Severity Reaction Status Date / Time No Known Allergies Allergy Verified 10/27/23 04:32 General Stated Complaint: Fall/Non TraumaCriteria STUART: 3 Review of Systems Narrative: see HPI Exam Narrative Exam Narrative: GENERAL: Alert, no acute distress SKIN: Warm and well perfused. No rashes, bruises, discolorations or abrasions. HEAD: Atraumatic, normocephalic without edema, discoloration or evidence of trauma. EYES: PERRL. No scleral icterus or conjunctival injection. EARS: No hemotympanum. NOSE: No discharge, tenderness, laxity. MOUTH: Moist mucus membranes without blood. NECK: Trachea midline. No discolorations or edema. CV: Regular rate and rhythm, Normal s1 and s2. PV: Radial pulses 2+ bilaterally and symmetric. Dorsalis pedis pulses 1+ bilaterally and symmetric. 2+ capillary refill. No extremity edema. CHEST: No abrasions or ecchymosis. Chest symmetric with respirations. No chest wall tenderness. Lungs are clear to auscultation bilaterally. ABDOMEN: No ecchymosis or abrasions. Soft, nondistended, nontender. BACK: No abrasions, skin openings, or ecchymosis. Low lumbar midline tenderness, otherwise spine without bony tenderness, no step offs. PELVIC: Pelvis stable, nontender to lateral compression MSK: Tolerates full range of motion of extremities without tenderness. Neuro: ? GCS 14.? PERRL.? EOMI.? Fluent speech, no dysarthria. Motor- 4+/5 strength symmetric bilateral upper and lower extremities Sensation- ?Intact to light touch and symmetric multiple dermatomes including upper and lower extremities. No saddle anesthesia Reflexes- 2/4 achilles & patellar, no clonus Gait/station: ?With walker: Normal stance.? No truncal ataxia. Steady gait with equal normal steps Course Vital Signs Vital signs: Vital Signs Temperature 36.8 C 10/27/23 04:19 Pulse 82 10/27/23 04:19 Respiratory Rate 20 10/27/23 04:19 Blood Pressure 158/79 H 10/27/23 04:19 Pulse Oximetry 96 10/27/23 04:19 Temperature 36.8 C 10/27/23 04:19 Pulse 82 10/27/23 04:19 Respiratory Rate 20 10/27/23 04:19 Respiratory Effort Normal, Non-Labored 10/27/23 04:26 Blood Pressure 158/79 H 10/27/23 04:19 Blood Pressure Position Supine 10/27/23 04:19 Pulse Oximetry 96 10/27/23 04:19 Oxygen Delivery Method Room Air 10/27/23 04:19 Oxygen Flow Rate 0 10/27/23 04:19 Pain Level 10 10/27/23 04:19 Medical Decision Making 82yo F with hx Parkinsonism, abnormal gait with frequent falls, HTN, T2DM, CKD, presenting via EMS after fall. Uses a walker or sometimes a cane at home; this morning around 0300 got up to the bathroom, did not use either device, turned to reach for counter and fell landing on her buttocks. Did not strike her head or lose consciousness. Did take a clonzapam before bed. Reports low back pain, unclear how much worse than usual. Denies neurologic symptoms or pain elsewhere. Vital signs reassuring on arrival; on exam she does have low lumbar midline tenderness. No neurologic deficits. C spine clinically clear. [facility] records reviewed, known lumbar compression fracture. Given age, will evaluate with plain film chest despite no traumatic findings, as well as CT lumbar spine Given tylenol for pain. No indication for labs or MRI imaging. CXR independently reviewed, no focal pneumonia, pneumothorax, or displaced fracture on my view; agree with radiology read below. CT independently reviewed, no displaced spinal fractures on my view, radiology read below with no acute findings. Trial ambulation and tolerated well, able to ambulate steadily independently with walker. On reassessment patient remains well appearing and denies pain. Discharged home with PT referral; discharge instructions and return precautions were reviewed with patient and daughter at bedside who verbalized understanding. All questions were answered and she is in full agreement with the plan. Imaging Data Radiologic Study: Imaging: X-Ray Radiologist's impression: IMPRESSION: No acute findings. Radiologic Study #2: Imaging: CT Scan Radiologist's impression: IMPRESSION: No acute findings. Multilevel degenerative changes throughout the spine. Stable mild superior endplate compression fracture of L3. Unchanged grade 1 anterolisthesis of L4 on L5. 7.1 cm left adnexal cystic finding unchanged since 2021 which may be a simple cyst or cystadenoma. Quality:SDOH Health Related Social Needs: Health related social needs food insecurity Health related social needs details Support PFSH All Active Problems (Updated 10/27/23 @ 06:59 by Bud iDor MD) Compression fracture of lumbar vertebra (Acute) Back pain (Acute) Fall (Acute) Compression fracture of L3 vertebra (Acute) Rib injury (Acute) Diabetes mellitus with autonomic neuropathy (Acute) Dementia (Chronic) Hearing loss (Acute) Parkinsonism (Acute) Gait abnormality (Acute) Babinski reflex (Acute) Seborrheic keratoses (Acute) Essential tremor (Acute) Tremor (Acute) Tinea unguium (Acute) Toe pain, right (Acute) Toe pain, left (Acute) Type 2 diabetes mellitus with diabetic peripheral angiopathy without gangrene (Acute) COVID (Acute ~05/2022) Corns and callosities (Acute) Pain, foot (Acute) Nail dystrophy (Acute) Rib pain on left side (Acute) Chronic kidney disease (Chronic) Nocturnal leg cramps (Acute) Diabetes mellitus (Chronic) Tubular adenoma of colon (Acute) Sessile colonic polyp (Acute) Counseling on health promotion and disease prevention (Acute) Hypercalcemia (Acute 06/22/10) Impaired fasting glucose (Acute 08/21/13) Overweight (Acute 02/27/11) Sessile colonic polyp (Acute 03/09/16) Tubular adenoma (Chronic 03/09/16) two adenomas, one serrated; rec repeat in 3 yrs.; Dr Gonzalez Skin lesion (Chronic 05/20/15) skin lesion R shoulder (?vaccinatioin site?) Sessile colonic polyp (Chronic 03/09/16) Osteoarthrosis involving more than one site but not generalized (Chronic 02/27/11) knees, fingers, toes Osteoarthritis (Chronic 02/27/11) knees, fingers, toes New onset type 2 diabetes mellitus (Chronic 06/26/16) ? 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 Dysmetabolic syndrome X (Chronic 02/27/11) IMPAIRED FBS 2 ELEVATED FBS OF 11/2008 MIN ELEVATION DIET CONTROLLED Depressive disorder (Chronic 02/27/11) SEES [employer]; olanzapine since 1997 Dysmetabolic syndrome X (Chronic 02/27/11) IMPAIRED FBS 2 ELEVATED FBS OF 11/2008 MIN ELEVATION DIET CONTROLLED Benign essential hypertension (Chronic 12/23/04) GOAL 130/85 Advance directive discussed with patient (Chronic 10/04/12) HAS DPOA 05/21/12 IN [facility]; [facility]; DNR/DNI ALSO DISCUSSED/DESIRED Abnormal blood sugar (Chronic) IMPAIRED FBS 2 ELEVATED FBS OF 11/2008 MIN ELEVATION DIET CONTROLLED Medical History HTN (hypertension) Frequent falls Balance problems Hyperlipidemia (02/27/11) Schizophrenia (05/25/16) Followed by [facility] Cataract of both eyes (01/04/17) Basal cell carcinoma (05/31/15) nodular type R shoulder Surgical History History of YAG laser capsulotomy of lens of left eye (11/10/22) Dr Lowry @ [facility] Wide local excision of basal cell carcinoma of the right posterior upper ex (06/17/15) Taran Gonzalez Trigger Finger release Tonsillectomy and adenoidectomy (~1950) Colonoscopy - IV Sedation (03/09/16) Extraction of cataract (01/18/17) Dr. Lowry Left eye 01/18/17, Right eye 02/01/17 [facility] Family History Mother , heart at age 94. Heart disease Father , ?? Substance abuse Sister No problems noted. Social History Smoking/Tobacco Use Status: Never Second Hand Exposure: No Smoking risk assessment performed?: Yes Alcohol Intake: never Drug use: Never Substance use type: does not use Adopted: No Caregiver/Support person: Yes Foster care: No Household members: children Housing: house Number of Children: 2 number of grandchildren: 2 Communication Needs: Hard of Hearing Education Level: high school Do you need help understanding health information?: Often current occupation: retired Pets and animals: No Sexually active: No Do you think of yourself as: straight/heterosexual Current gender identity: female What is your relationship status?: How often do you talk on the phone with friends or family?: three or more times per week How often do you get together with friends or relatives?: never Do you belong to any clubs or organized social groups?: no Panel score (0-1 are the most socially isolated patients): 1 Simona/Cheondoism: None Special simona needs: No Seatbelt use: always Helmet use: No (Did not answer) Drive intox or ride w/intox ems driver: No Working smoke detector in home: Yes Fire extinguisher in home: Yes Carbon monox detector in home: Yes Do you feel safe at home: Yes Additional Social history: Pt daughter lives with her
[2023-10-27] MEDS: Acetaminophen 500 MG TAB 1000 MG PO (04:55)
--- NOTE | 2023-10-27 06:50 | DI.VRAD_ITS ---
PROCEDURE INFORMATION: Exam: XR Chest Exam date and time: 10/27/2023 5:18 AM Age: 82 years old Clinical indication: Injury or trauma; Fall; Blunt trauma (contusions or hematomas) TECHNIQUE: Imaging protocol: Radiologic exam of the chest. Views: 2 views. COMPARISON: CR XR RIBS BI INCLUDE CHEST 09/24/2023 2:14 PM FINDINGS: Lungs: Unremarkable. No consolidation. Pleural spaces: Unremarkable. No pleural effusion. No pneumothorax. Heart/Mediastinum: Mildly enlarged heart. Bones/joints: Degenerative changes in the spine. No acute fracture seen. IMPRESSION: No acute findings. Dictated and Authenticated by: Micheline Caceres MD. Ordering:CAREN Tobias MD
--- NOTE | 2023-10-27 06:57 | DI.VRAD_ITS ---
PROCEDURE INFORMATION: Exam: CT Lumbar Spine Without Contrast Exam date and time: 10/27/2023 5:24 AM Age: 82 years old Clinical indication: Pain and injury or trauma; Fall; Blunt trauma (contusions or hematomas); Low back pain; Additional info: Fall, low lumbar back pain TECHNIQUE: Imaging protocol: Computed tomography of the lumbar spine without contrast. COMPARISON: CT THORACIC LUMBAR SPINE REC 10/28/2021 9:01 PM and lumbar spine x-rays 09/24/2023. FINDINGS: Bones/joints: Osteopenia. Five lumbar type vertebral bodies. There is stable grade 1 anterolisthesis of L4 on L5. There is a mild superior endplate compression fracture of L3 with approximately 10% height loss unchanged since the prior x-rays. Multilevel degenerative changes with prominent anterior disc osteophytes off the T12-L1 through L2-L3 disc spaces. Mild broad-based disc at the L4-L5 level which, along with facet and ligamentous hypertrophy , results in mild central canal narrowing. No focal disc herniation seen. No significant foraminal stenosis. 7 mm bone island in the right sacrum. Reproductive: 7.1 cm left adnexal cystic finding the unchanged from the prior CT., likely a cyst or cystadenoma. Vasculature: Atherosclerotic aorta. Soft tissues: Unremarkable. IMPRESSION: No acute findings. Multilevel degenerative changes throughout the spine. Stable mild superior endplate compression fracture of L3. Unchanged grade 1 anterolisthesis of L4 on L5. 7.1 cm left adnexal cystic finding unchanged since 2021 which may be a simple cyst or cystadenoma. Dictated and Authenticated by: Micheline Caceres MD. Ordering:CAREN Tobias MD
== END 2023-10-27 07:13 | disposition home or self-care (01) ==
PROVIDERS: Emergency Provider Student in an Organized Health Care Education/Training Program; PCP Family Medicine
DX: S32.030A Wedge compression fracture of third lumbar vertebra, initial encounter for closed fracture (principal); M54.9 Dorsalgia, unspecified; I10 Essential (primary) hypertension; W19.XXXA Unspecified fall, initial encounter; Z91.81 History of falling
CPT/HCPCS: 36416; 82962; 99284; 71046; 72131; 99283

== ENCOUNTER 2023-11-22 02:05 | Outpatient (CLI) | payer MEDICARE, SELFPAY ==
--- NOTE | 2023-11-22 | DI.MRI_ITS ---
Exam(s) MR LUMBAR SPINE WO EXAM: MR LUMBAR SPINE WO CLINICAL HISTORY: LEFT FLANK PLAIN, R10.9 THORACIC SPINAL STENOSIS, M48.04. TECHNIQUE: Multiplanar multisequence MRI of the Lumbar spine was performed. COMPARISON: CT CT LUMBAR SPINE WO from 10/27/2023 FINDINGS: Bones: The last intervertebral disc space is designated the L5/S1 level for the numbering purpose of this ex amination. Stable mild compression fracture of the superior endplate of L3. No new compression fractures. Smal l endplate osteophytes at several levels. Alignment: Unremarkable. The marrow signal characteristics are unremarkable. Cord: The conus tip ends at the T12 level. It is of normal size and signal intensity. T12-L1: No focal disc herniation is present. No central spinal canal stenosis.No neural foraminal st enosis. L1-2: No focal disc herniation is present. No central spinal canal stenosis.No neural foraminal sten osis. L2-3: No focal disc herniation is present. No central spinal canal stenosis.No neural foraminal jagdish nosis. L3-4: No focal disc herniation is present. No central spinal canal stenosis.No neural foraminal jagdish nosis. L4-5: No focal disc herniation is present. Mild facet joint degenerative changes. No central spinal canal stenosis.No neural foraminal stenosis. L5-S1: No focal disc herniation is present. Mild facet joint degenerative changes. No central spina l canal stenosis.No neural foraminal stenosis. The visualized SI joints and sacrum are unremarkable. Soft tissues: The paraspinal soft tissues are unremarkable. IMPRESSION: No evidence of focal disc herniation. No significant disc bulging. No evidence of significant spina l stenosis or neuroforaminal narrowing. Old mild L3 compression fracture. DATA REPOSITORY:
--- NOTE | 2023-11-22 | DI.MRI_ITS ---
Exam(s) MR THORACIC SPINE WO EXAM: MR THORACIC SPINE WO CLINICAL HISTORY: LEFT FLANK PLAIN, R10.9 THORACIC SPINAL STENOSIS, M48.04. TECHNIQUE: Multiplanar multisequence MRI of the Thoracic spine was performed. COMPARISON: MR MR THORACIC SPINE WO from 03/12/2023 FINDINGS: Bones: New mild compression fracture of the superior endplate T5. Marrow edema throughout the verteb ral body. Alignment is satisfactory. Incidental small hemangiomas at T6 and T12. Cord: The thoracic cord is normal size and signal intensity. No intrinsic cord lesion is present. C onus medullaris terminates at L1. Soft tissues: Normal. T1-2: No disc herniation or bulge is identified. T2-3: No disc herniation or bulge is identified. T3-4: No disc herniation or bulge is identified. T4-5: Small osteophytes projecting posteriorly. Minimal indentation of the thecal sac. T5-6: No disc herniation or bulge is identified. T6-7: No disc herniation or bulge is identified. T7-8: No disc herniation or bulge is identified. T8-9: No disc herniation or bulge is identified. T9-10: No disc herniation or bulge is identified. T10-11:No disc herniation or bulge is identified. T11-12: 2 2 small osteophytes and posterior disc bulging. T12-L1: No disc herniations or bulges are present. IMPRESSION: Mild compression fracture of the superior endplate of T5 appears relatively acute. Stable appearance of disc osteophytes at T4-5 and T11-12. Unexpected findings DATA REPOSITORY:
== END 2023-11-22 02:25 ==
LOC: DI 02:05
PROVIDERS: PCP Family Medicine; Visit Provider Nurse Practitioner Family
DX: S22.050A Wedge compression fracture of T5-T6 vertebra, initial encounter for closed fracture (principal); X58.XXXA Exposure to other specified factors, initial encounter
CPT/HCPCS: 72146; 72148

== ENCOUNTER → 2023-12-28 12:47 | Outpatient (BNVA) | payer MEDICARE, SELFPAY | PROVIDERS: PCP Family Medicine; Visit Provider Psychiatry & Neurology Neurology | DX: G20.C Parkinsonism, unspecified (principal); R26.9 Unspecified abnormalities of gait and mobility; R29.2 Abnormal reflex; F03.90 Unspecified dementia, unspecified severity, without behavioral disturbance, psychotic disturbance, mood disturbance, and anxiety; H91.93 Unspecified hearing loss, bilateral | CPT/HCPCS: 99215 ==

== ENCOUNTER → 2024-03-28 12:46 | Outpatient (BNVA) | payer MEDICARE, SELFPAY | PROVIDERS: PCP Family Medicine; Visit Provider Psychiatry & Neurology Neurology | DX: R29.2 Abnormal reflex (principal); F03.90 Unspecified dementia, unspecified severity, without behavioral disturbance, psychotic disturbance, mood disturbance, and anxiety; H91.93 Unspecified hearing loss, bilateral; G20.C Parkinsonism, unspecified; R26.9 Unspecified abnormalities of gait and mobility | CPT/HCPCS: 99214 ==

== ENCOUNTER → 2024-05-23 12:42 | Outpatient (BNVA) | payer MEDICARE, SELFPAY | PROVIDERS: PCP Family Medicine; Referring Provider Family Medicine; Visit Provider Psychiatry & Neurology Neurology | DX: G20.C Parkinsonism, unspecified (principal); R29.2 Abnormal reflex; R26.9 Unspecified abnormalities of gait and mobility; H91.90 Unspecified hearing loss, unspecified ear; F03.90 Unspecified dementia, unspecified severity, without behavioral disturbance, psychotic disturbance, mood disturbance, and anxiety | CPT/HCPCS: 99214 ==

== ENCOUNTER → 2024-08-28 12:08 | Outpatient (BNVA) | payer MEDICARE, SELFPAY | PROVIDERS: PCP Family Medicine; Referring Provider Family Medicine; Visit Provider Psychiatry & Neurology Neurology | DX: R29.2 Abnormal reflex (principal); R26.9 Unspecified abnormalities of gait and mobility; G20.C Parkinsonism, unspecified; H91.90 Unspecified hearing loss, unspecified ear; F03.90 Unspecified dementia, unspecified severity, without behavioral disturbance, psychotic disturbance, mood disturbance, and anxiety; I10 Essential (primary) hypertension; N18.9 Chronic kidney disease, unspecified; L60.3 Nail dystrophy | CPT/HCPCS: 99214 ==

== ENCOUNTER → 2024-10-02 12:52 | Outpatient (BNVA) | payer MEDICARE, SELFPAY | PROVIDERS: PCP Family Medicine; Referring Provider Family Medicine; Visit Provider Podiatrist | DX: E11.51 Type 2 diabetes mellitus with diabetic peripheral angiopathy without gangrene (principal); M79.675 Pain in left toe(s); M79.674 Pain in right toe(s); B35.1 Tinea unguium; E11.43 Type 2 diabetes mellitus with diabetic autonomic (poly)neuropathy; R25.2 Cramp and spasm; R26.89 Other abnormalities of gait and mobility; R09.89 Other specified symptoms and signs involving the circulatory and respiratory systems; R20.8 Other disturbances of skin sensation; L65.9 Nonscarring hair loss, unspecified; I83.93 Asymptomatic varicose veins of bilateral lower extremities; R60.0 Localized edema; R23.8 Other skin changes; L60.2 Onychogryphosis; L60.3 Nail dystrophy; L85.8 Other specified epidermal thickening; L60.0 Ingrowing nail | CPT/HCPCS: 11721 ==

== ENCOUNTER → 2024-10-25 09:37 | Outpatient (BNVA) | payer MEDICARE, SELFPAY | PROVIDERS: PCP Family Medicine; Referring Provider Family Medicine; Visit Provider Podiatrist | DX: L60.0 Ingrowing nail (principal); M79.674 Pain in right toe(s); M79.675 Pain in left toe(s); B35.1 Tinea unguium; E11.43 Type 2 diabetes mellitus with diabetic autonomic (poly)neuropathy; E11.51 Type 2 diabetes mellitus with diabetic peripheral angiopathy without gangrene | CPT/HCPCS: 11750 ==

== ENCOUNTER → 2024-11-14 11:21 | Outpatient (BNVA) | payer MEDICARE, SELFPAY | PROVIDERS: PCP Family Medicine; Referring Provider Family Medicine; Visit Provider Podiatrist | DX: E11.51 Type 2 diabetes mellitus with diabetic peripheral angiopathy without gangrene (principal); M79.675 Pain in left toe(s); M79.674 Pain in right toe(s); B35.1 Tinea unguium; E11.43 Type 2 diabetes mellitus with diabetic autonomic (poly)neuropathy; L60.0 Ingrowing nail | CPT/HCPCS: 99213 ==

== ENCOUNTER → 2024-11-29 12:37 | Outpatient (BNVA) | payer MEDICARE, SELFPAY | PROVIDERS: PCP Family Medicine; Referring Provider Family Medicine; Visit Provider Psychiatry & Neurology Neurology | DX: G20.C Parkinsonism, unspecified (principal); F03.90 Unspecified dementia, unspecified severity, without behavioral disturbance, psychotic disturbance, mood disturbance, and anxiety; R29.2 Abnormal reflex; R26.9 Unspecified abnormalities of gait and mobility; I12.9 Hypertensive chronic kidney disease with stage 1 through stage 4 chronic kidney disease, or unspecified chronic kidney disease; N18.9 Chronic kidney disease, unspecified | CPT/HCPCS: 99214 ==

== ENCOUNTER → 2025-02-06 12:58 | Outpatient (BNVA) | payer MEDICARE, SELFPAY | PROVIDERS: PCP Family Medicine; Referring Provider Family Medicine; Visit Provider Podiatrist | DX: M79.674 Pain in right toe(s) (principal); M79.675 Pain in left toe(s); B35.1 Tinea unguium; E11.43 Type 2 diabetes mellitus with diabetic autonomic (poly)neuropathy; E11.51 Type 2 diabetes mellitus with diabetic peripheral angiopathy without gangrene; G20.C Parkinsonism, unspecified; R09.89 Other specified symptoms and signs involving the circulatory and respiratory systems; R20.8 Other disturbances of skin sensation; L65.9 Nonscarring hair loss, unspecified; I83.93 Asymptomatic varicose veins of bilateral lower extremities; R60.0 Localized edema; M20.41 Other hammer toe(s) (acquired), right foot; M21.611 Bunion of right foot; R23.4 Changes in skin texture; L60.2 Onychogryphosis; L60.3 Nail dystrophy; L85.8 Other specified epidermal thickening | CPT/HCPCS: 11055; 11721 ==